=== PATIENT | female | born 1960 | race Caucasian/White ===

== ENCOUNTER 2023-03-06 12:54 | Observation (INO) ==
[2023-03-06] MEDS ORDERED: ONDANSETRON INJ 2 MG/ML 2 ML VIAL IV STA (13:30)
[2023-03-06] MEDS ORDERED: MoRPHine SULFATE 4 MG/ML 1 ML CARP\\VIAL IV STA (13:30)
--- NOTE | 2023-03-06 13:40 | Emergency Department Note ---
Impression & Plan Trimalleolar fracture, Fracture dislocation of ankle joint, Fall ED Provider Note CHIEF COMPLAINT: Left ankle pain HISTORY OF PRESENT ILLNESS: This 62 year old female patient presents to the emergency department via ambulance approximately 1 hour after sustaining an injury to the left ankle and foot when she tripped over a root while walking outside. The patient reports deformity and complains of pain diffusely throughout the ankle. The patient denies pain of the foot. There is some pain in the area just below the knee but states "I have bad knees anyway". The patient rates the pain as sharp and 8/10. The patient is not able to bear weight on the foot. She had to crawl to the house to get help and call 911. The patient is able to move their toes. No numbness or weakness of the foot, no laceration. The patient has not had a previous fracture to this ankle. The patient has taken no medication for the pain. The patient denies any other injury. REVIEW OF SYSTEMS: A 6 system review of systems was completed with positives and pertinent negatives listed in the HPI. ALLERGIES: lidocaine, NSAIDs PHYSICAL EXAM: Vital Signs: Reviewed Nurse's notes, vital signs stable. GENERAL: This is a 62 year old female, no acute distress, but appears in pain, well-developed, well-nourished. MENTAL STATUS: Alert, oriented to person place and time, and cooperative. MUSCULOSKELETAL: The left ankle is deformed. There is tenting over the medial malleolus, but no break in the skin. There is no specific fifth metatarsal tenderness. There is no tenderness over the rest of the foot. There is no calf or tibia/fibular tenderness, however the patient does report some inferior knee discomfort, but uncertain whether that may be acute or chronic. The foot and toes are warm and well-perfused. Dorsalis pedis pulse 2+. Sensation to pain and light touch is intact. Capillary refill less than 2 seconds. EMERGENCY DEPARTMENT COURSE: I examined the patient. IV access obtained. Patient was medicated with IV morphine and Zofran. X-rays of the left foot, ankle, tib/fib were reviewed by myself and read by radiology and reveal trimalleolar fracture with tibiotalar subluxation. I discussed the case with my attending physician, Dr. Wilkinson. He did see and evaluate the patient with me. Verbal consent was obtained by me from the patient to perform closed reduction of the fracture/dislocation of the left ankle. The patient was given 100 mcg IV fentanyl. The fracture/dislocation was reduced by me. Please see procedure note. An Ortho-Glass posterior leg with stirrup splint was applied to the ankle by nursing staff under my direct supervision and the position was satisfactory. Neurovascular status was rechecked and intact. Postreduction x-rays were performed and reviewed by myself and radiologist as noted. I discussed the case with Dr. Anand, orthopedic surgeon on-call. He did review the films. He offered for the patient to be admitted with surgery completed tomorrow versus discharge to home and outpatient follow-up next week. I presented these options to the patient and she feels more comfortable with an admission. The patient does note that she has 12 steps to get up to her area of the home that she lives in. She is nervous that her pain will be uncontrolled and that she may further injure the ankle I updated Dr. Anand that the patient would prefer to stay and be admitted. He did agree to see her for admission. Please see Dr. Anand's dictation regarding ongoing management care of this patient. I did offer repeat doses of pain medication and the patient declined, noting that since the reduction and splint application, her pain is much more controlled at this time. PROCEDURE NOTE: Verbal consent obtained to perform the procedure. After administration of 100mcg IV Fentanyl, the foot was grasped by the toes and a small amount of traction was pulled at the heel. The ankle fracture/dislocation was felt to reduce, though did remain somewhat unstable. The left lower extremity was splinted in a posterior leg with stirrup orthoglass splint by nursing staff while I maintained the reduction and splint was molded to the ankle. The patient tolerated the procedure very well. DIFFERENTIAL DIAGNOSIS: Fracture, subluxation, dislocation, contusion, ligamentous injury, neurovascular, compartment syndrome, as well as other pathologies. I attest that I have personally reviewed the patient's current medication list. Blood Pressure Screening: Patient was found to have a slightly elevated blood pressure due to circumstances. I do not believe that the patient requires hypertension monitoring. The chart was completed utilizing [employer] voice recognition software. Grammatical errors, random word insertions, pronoun errors, and incomplete sentences are an occasional consequence of this system due to software limitatio ns, ambient noise, and hardware issues. Any formal questions or concerns about the content, text, or information contained within the body of this dictation should be directly addressed to the provider for clarification. Past Med/Surg History Medical History Asthma excercise induced - has not used inhaler in years GERD (gastroesophageal reflux disease) HTN (hypertension) Hx-TIA (transient ischemic attack) states possible TIA-- 09/2022 @ [facility] - fatigue, difficulty speaking, was under high stress, elevated bp; does not follow w/ neuro- follows w/ PCP, started on BP meds; no issues since Hypothyroid Medical marijuana use Seasonal allergies Sleep apnea states borderline- no device at this time Surgical History H/O: hysterectomy Hx of colonoscopy Hx of dilation and curettage Hx of sinus surgery Hx of surgical procedure uterine artery embolization Hx of tonsillectomy Hx of wisdom tooth extraction Family History Other No family history of adverse response to anesthesia Social History Smoking Status: Unknown if ever smoked Second Hand Exposure: No; Do You Dip or Chew Tobacco: No; Hx Alcohol Use: No Hx Substance Use: Yes (medical marijuana use daily -advised) Preferred Language: Kazakh Communication Ability: Effective Director Of Acquisitions Required: No Beliefs That Will Affect Care: None Current Living Situation: Spouse Feels Safe at Home: Yes Assistive Devices: Glasses Allergies Allergies Allergy/AdvReac Type Severity Reaction Status Date / Time lidocaine Allergy Unknown Hives Verified 02/27/23 13:32 ibuprofen [From Advil] AdvReac Unknown Difficulty Verified 02/27/23 13:32 Breathing naproxen [From Aleve] AdvReac Unknown Difficulty Verified 02/27/23 13:32 Breathing Home Meds Home Medications Medication Instructions Recorded Confirmed aspirin 81 mg tablet,delayed 81 mg PO QAM 09/12/22 02/27/23 release azelastine 137 mcg (0.1 %) nasal 1 spray intranasal HS 09/12/22 02/27/23 spray aerosol estradiol 0.01% (0.1 mg/gram) 1 applic vaginal .EVERY OTHER NIGHT 09/12/22 02/27/23 vaginal cream famotidine 20 mg tablet 20 mg PO AMHS PRN Acid Reflux 09/12/22 02/27/23 levothyroxine 100 mcg tablet 100 mcg PO DAILYBB 09/12/22 02/27/23 pediatric multivitamin 1 tab PO DAILY 09/12/22 02/27/23 Medical Marijuana 1 dose PO HS PRN Pain 02/27/23 02/27/23 albuterol sulfate 90 mcg/actuation 1 inh inhalation QID PRN Shortness 02/27/23 02/27/23 aerosol inhaler Of Breath Or Wheezing losartan 25 mg tablet 25 mg PO QAM 02/27/23 02/27/23 Results & Data (ED) Vital Signs Vital Signs - 24 hr 03/06/23 12:59 03/06/23 16:25 03/06/23 17:43 Temperature 36.7 C Temperature Source Oral Pulse Rate 63 Pulse Rate [Right Finger] 52 L 56 L Pulse Rhythm [Right Finger] Regular Respiratory Rate 16 18 16 Respiratory Effort / Characteristics Non-Labored Spontaneous Non-Labored Respiratory Depth Normal Normal Normal Blood Pressure 175/76 H Blood Pressure [Right Arm] 154/76 H 151/67 H Blood Pressure Mean 109 Blood Pressure Mean [Right Arm] 102 95 Blood Pressure Position [Right Arm] Sitting Pulse Oximetry 98 98 97 Oxygen Delivery Method Room Air Room Air Room Air Sepsis Recent Fever Within 48 Hours No Sepsis New/Unexplained Change in Mental Status N/A Sepsis Action Taken by Nursing No Action Required Administered Medications Discontinued Medications Fentanyl Citrate (Fentanyl Citrate Pf 100 Mcg/2 Ml Vial) 100 mcg IV NOW STA Stop: 03/06/23 14:20 Last Admin: 03/06/23 14:34 Dose: 100 mcg Documented By: SUSU Sodium Chloride (Nss 1000ml) 1,000 mls @ 999 mls/hr IV .Q1H1M ONE Stop: 03/06/23 15:19 Last Infusion: 03/06/23 15:27 Dose: 0 mls/hr Documented By: Admin: 03/06/23 14:25 Dose: 999 mls/hr Documented By: SUSU Morphine Sulfate (Morphine Sulfate 4 Mg/Ml 1 Ml Carp\\Vial) 4 mg IV NOW STA Stop: 03/06/23 13:31 Last Admin: 03/06/23 13:35 Dose: 4 mg Documented By: JKB Ondansetron HCl (Ondansetron Inj 2 Mg/Ml 2 Ml Vial) 4 mg IV NOW STA Stop: 03/06/23 13:31 Last Admin: 03/06/23 13:35 Dose: 4 mg Documented By: SUSU Imaging Data Radiologist's Impression: Ankle X-Ray 03/06/23 13:30 XR tibia fibula LT 2V, XR foot LT 2V, XR ankle LT 2V HISTORY: 62 years-old Female pain, ankle deformity, tripped over root acute pain of the left lower extremity status post trauma COMPARISON: None TECHNIQUE: 2 views of left tibia and fibula with 2 views of the left ankle and 2 views of the left foot FINDINGS: TIBIA/FIBULA: Suboptimal evaluation of the knee secondary to positioning.There is an acute trimalleolar ankle fracture as below. The proximal tibia and fibula appear intact. ANKLE: Acute trimalleolar ankle fracture. Distal fibular metadiaphyseal fracture is comminuted with 1.6 cm lateral displacement and apex medial angulation of approximately 27 degrees. Tibiotalar subluxation with pathologic widening of the distal tibiofibular syndesmosis measuring 2.5 cm. Acute medial malleolar fracture with 1.8 cm displacement. Acute posterior malleolar fracture without significant displacement. The calcaneus. Moderate soft tissue swelling. FOOT: No acute fracture or dislocation identified. Spurring of the calcaneus. Type II accessory navicular. Indeterminate radiodensity projects medial to the fifth metatarsal. IMPRESSION: 1. Acute trimalleolar ankle fracture with comminution, displacement and angulation as above. 2. Tibiotalar subluxation. 3. Indeterminate radiodensity adjacent to the fifth metatarsal, likely artifactual. Fracture fragment considered less likely. ACT 112: Negative or not required by law. The above report was generated using voice recognition software. It may contain grammatical, syntax or spelling errors. Electronically signed by: Yefri Rascon M.D. 03/06/2023 2:21 PM Foot X-Ray 03/06/23 13:30 XR tibia fibula LT 2V, XR foot LT 2V, XR ankle LT 2V HISTORY: 62 years-old Female pain, ankle deformity, tripped over root acute pain of the left lower extremity status post trauma COMPARISON: None TECHNIQUE: 2 views of left tibia and fibula with 2 views of the left ankle and 2 views of the left foot FINDINGS: TIBIA/FIBULA: Suboptimal evaluation of the knee secondary to positioning.There is an acute trimalleolar ankle fracture as below. The proximal tibia and fibula appear intact. ANKLE: Acute trimalleolar ankle fracture. Distal fibular metadiaphyseal fracture is comminuted with 1.6 cm lateral displacement and apex medial angulation of approximately 27 degrees. Tibiotalar subluxation with pathologic widening of the distal tibiofibular syndesmosis measuring 2.5 cm. Acute medial malleolar fracture with 1.8 cm displacement. Acute posterior malleolar fracture without significant displacement. The calcaneus. Moderate soft tissue swelling. FOOT: No acute fracture or dislocation identified. Spurring of the calcaneus. Type II accessory navicular. Indeterminate radiodensity projects medial to the fifth metatarsal. IMPRESSION: 1. Acute trimalleolar ankle fracture with comminution, displacement and angulation as above. 2. Tibiotalar subluxation. 3. Indeterminate radiodensity adjacent to the fifth metatarsal, likely artifactual. Fracture fragment considered less likely. ACT 112: Negative or not required by law. The above report was generated using voice recognition software. It may contain grammatical, syntax or spelling errors. Electronically signed by: Yefri Rascon M.D. 03/06/2023 2:21 PM Tibia/Fibula X-Ray 03/06/23 13:30 XR tibia fibula LT 2V, XR foot LT 2V, XR ankle LT 2V HISTORY: 62 years-old Female pain, ankle deformity, tripped over root acute pain of the left lower extremity status post trauma COMPARISON: None TECHNIQUE: 2 views of left tibia and fibula with 2 views of the left ankle and 2 views of the left foot FINDINGS: TIBIA/FIBULA: Suboptimal evaluation of the knee secondary to positioning.There is an acute trimalleolar ankle fracture as below. The proximal tibia and fibula appear intact. ANKLE: Acute trimalleolar ankle fracture. Distal fibular metadiaphyseal fracture is comminuted with 1.6 cm lateral displacement and apex medial angulation of approximately 27 degrees. Tibiotalar subluxation with pathologic widening of the distal tibiofibular syndesmosis measuring 2.5 cm. Acute medial malleolar fracture with 1.8 cm displacement. Acute posterior malleolar fracture without significant displacement. The calcaneus. Moderate soft tissue swelling. FOOT: No acute fracture or dislocation identified. Spurring of the calcaneus. Type II accessory navicular. Indeterminate radiodensity projects medial to the fifth metatarsal. IMPRESSION: 1. Acute trimalleolar ankle fracture with comminution, displacement and angulation as above. 2. Tibiotalar subluxation. 3. Indeterminate radiodensity adjacent to the fifth metatarsal, likely artifactual. Fracture fragment considered less likely. ACT 112: Negative or not required by law. The above report was generated using voice recognition software. It may contain grammatical, syntax or spelling errors. Electronically signed by: Yefri Rascon M.D. 03/06/2023 2:21 PM Ankle X-Ray 03/06/23 14:44 XR ankle LT min 3V routine HISTORY: 62 years-old Female post-reduction acute left ankle fracture COMPARISON: Radiographs of same day TECHNIQUE: 3 views of the left ankle FINDINGS: Improved alignment of the acute trimalleolar fracture with mild persistent displacement of the medial, lateral and posterior malleolar fractures. There is also improved alignment of the tibiotalar joint. There is mild persistent widening involving the medial tibiotalar articulation along with mild widening of the distal tibiofibular syndesmosis. Moderate soft tissue swelling. No definite intra-articular fracture fragments identified. IMPRESSION: Improved alignment of the acute trimalleolar ankle fracture with improved tibiotalar alignment. ACT 112: Negative or not required by law. The above report was generated using voice recognition software. It may contain grammatical, syntax or spelling errors. Electronically signed by: Yefri Rascon M.D. 03/06/2023 3:43 PM Discharge Plan Visit Data Chief Complaint: Ankle Pain Stated Complaint: FALL, LEFT ANKLE INJURY ED Provider: Kee Wilkinson ED Midlevel Provider: Karlee Julian Discharge Problem: Trimalleolar fracture, Fracture dislocation of ankle joint, Fall Patient Disposition: Admitted As Inpatient Discharge Instructions Interventions: ED Discharge Assessment Last Done: 03/06/23 20:02
[2023-03-06] MEDS ORDERED: SODIUM CHLORIDE 0.9% 1000ML 1,000 ML IV ONE (14:19)
[2023-03-06] MEDS ORDERED: fentaNYL citrate PF 100 MCG/2 ML VIAL IV STA (14:19)
--- NOTE | 2023-03-06 14:23 | XRay Report ---
XR tibia fibula LT 2V, XR foot LT 2V, XR ankle LT 2V HISTORY: 62 years-old Female pain, ankle deformity, tripped over root acute pain of the left lower e xtremity status post trauma COMPARISON: None TECHNIQUE: 2 views of left tibia and fibula with 2 views of the left ankle and 2 views of the left fo ot FINDINGS: TIBIA/FIBULA: Suboptimal evaluation of the knee secondary to positioning.There is an acute trimalleolar ankle fract ure as below. The proximal tibia and fibula appear intact. ANKLE: Acute trimalleolar ankle fracture. Distal fibular metadiaphyseal fracture is comminuted with 1.6 cm lateral displacement and apex medial angulation of approximately 27 degrees. Tibiotalar subluxation w ith pathologic widening of the distal tibiofibular syndesmosis measuring 2.5 cm. Acute medial malleol ar fracture with 1.8 cm displacement. Acute posterior malleolar fracture without significant displace ment. The calcaneus. Moderate soft tissue swelling. FOOT: No acute fracture or dislocation identified. Spurring of the calcaneus. Type II accessory navicular. Indeterminate radiodensity projects medial to the fifth metatarsal. IMPRESSION: 1. Acute trimalleolar ankle fracture with comminution, displacement and angulation as above. 2. Tibiotalar subluxation. 3. Indeterminate radiodensity adjacent to the fifth metatarsal, likely artifactual. Fracture fragment considered less likely. ACT 112: Negative or not required by law. The above report was generated using voice recognition software. It may contain grammatical, syntax o r spelling errors. Electronically signed by: Yefri Rascon M.D. 03/06/2023 2:21 PM
--- NOTE | 2023-03-06 15:43 | Emergency Department Note ---
ED Visit Note Patient was seen by the JACINTO, I have also evaluated the patient at bedside for a left ankle injury Left ankle on exam patient is neurovascularly intact there is obvious deformity and strays were reviewed by me has a trimalleolar fracture Patient was verbally consented and understood that we would be doing a closed fracture dislocation reduction Patient tolerated the procedure well, see the JACINTO's note regarding the procedure, patient was splinted, will be referred to orthopedics .
--- NOTE | 2023-03-06 15:45 | XRay Report ---
XR ankle LT min 3V routine HISTORY: 62 years-old Female post-reduction acute left ankle fracture COMPARISON: Radiographs of same day TECHNIQUE: 3 views of the left ankle FINDINGS: Improved alignment of the acute trimalleolar fracture with mild persistent displacement of the medial , lateral and posterior malleolar fractures. There is also improved alignment of the tibiotalar joint . There is mild persistent widening involving the medial tibiotalar articulation along with mild wide linwood of the distal tibiofibular syndesmosis. Moderate soft tissue swelling. No definite intra-articul ar fracture fragments identified. IMPRESSION: Improved alignment of the acute trimalleolar ankle fracture with improved tibiotalar alig nment. ACT 112: Negative or not required by law. The above report was generated using voice recognition software. It may contain grammatical, syntax o r spelling errors. Electronically signed by: Yefri Rascon M.D. 03/06/2023 3:43 PM
--- NOTE | 2023-03-06 18:27 | Anesthesiology Consultation ---
Date of Service March 06, 2023 Assessment & Plan Chart Review Chart Review: Acceptable Risk for Surgery and Patient NOT seen in Pre Admission Testing Consults Requested none ASA ASA3 Proposed Anesthesia Anesthesia Type: General Regional Regional Laterality: Left Site: Popliteal and Adductor Canal History Height/Weight Height: 5 ft 6 in Weight: 114.3 kg Allergies Allergy/AdvReac Type Severity Reaction Status Date / Time lidocaine Allergy Unknown Hives Verified 02/27/23 13:32 ibuprofen [From Advil] AdvReac Unknown Difficulty Verified 02/27/23 13:32 Breathing naproxen [From Aleve] AdvReac Unknown Difficulty Verified 02/27/23 13:32 Breathing Medications Home Medications Medication Instructions Recorded Confirmed Last Taken aspirin 81 mg tablet,delayed 81 mg PO QAM 09/12/22 02/27/23 Unknown release azelastine 137 mcg (0.1 %) nasal 1 spray intranasal HS 09/12/22 02/27/23 Unknown spray aerosol estradiol 0.01% (0.1 mg/gram) 1 applic vaginal .EVERY OTHER NIGHT 09/12/22 02/27/23 Unknown vaginal cream famotidine 20 mg tablet 20 mg PO AMHS PRN Acid Reflux 09/12/22 02/27/23 Unknown levothyroxine 100 mcg tablet 100 mcg PO DAILYBB 09/12/22 02/27/23 Unknown pediatric multivitamin 1 tab PO DAILY 09/12/22 02/27/23 Unknown Medical Marijuana 1 dose PO HS PRN Pain 02/27/23 02/27/23 Unknown albuterol sulfate 90 mcg/actuation 1 inh inhalation QID PRN Shortness 02/27/23 02/27/23 Unknown aerosol inhaler Of Breath Or Wheezing losartan 25 mg tablet 25 mg PO QAM 02/27/23 02/27/23 Unknown Past Medical History Medical History Asthma excercise induced - has not used inhaler in years GERD (gastroesophageal reflux disease) HTN (hypertension) Hx-TIA (transient ischemic attack) states possible TIA-- 09/2022 @ [facility] - fatigue, difficulty speaking, was under high stress, elevated bp; does not follow w/ neuro- follows w/ PCP, started on BP meds; no issues since Hypothyroid Medical marijuana use Seasonal allergies Sleep apnea states borderline- no device at this time morbid obesity ASCVD HLD Exercise / Class Metabolic Activity II 4-5 Yardwork/Stairs/Walk up hill Past Family History Family History Other No family history of adverse response to anesthesia Past Surgical History Surgical History H/O: hysterectomy Hx of colonoscopy Hx of dilation and curettage Hx of sinus surgery Hx of surgical procedure uterine artery embolization Hx of tonsillectomy Hx of wisdom tooth extraction Past Anesthesia History No Hx of Anesthesia Complications and No Family Hx of Anesthesia Complications History of PONV No Hx of PONV and No Hx of Motion Sickness Social History Smoking Status: Unknown if ever smoked Do You Dip or Chew Tobacco: No Hx Alcohol Use: No Hx Substance Use: Yes (medical marijuana use daily -advised) substance use type: marijuana Physical Exam Vital Signs Last Vital Signs Temp 36.7 C 03/06/23 12:59 Pulse 56 L 03/06/23 17:43 Resp 16 03/06/23 17:43 BP 151/67 H 03/06/23 17:43 Pulse Ox 97 03/06/23 17:43 O2 Del Method Room Air 03/06/23 17:43 Testing Electrocardiogram Date: 09/12/22 Findings: + NSR @ (@ 67;LAE) Other Testing Neck CTA (09/12/2022)Neg.
--- NOTE | 2023-03-06 20:59 | History & Physical Report ---
Date of Service March 06, 2023 Assessment & Plan (1) Trimalleolar fracture: (2) Fracture dislocation of ankle joint: Plan 62-year-old female with trimalleolar ankle fracture dislocation with adequate closed reduction in the emergency room. Given the degree of displacement and instability in the pattern, my recommendation was to proceed with an open reduction and internal fixation. There is an advantage to treat this acutely tomorrow versus waiting for swelling to worsen. Surgical management would likely give her more stability to be discharged to outpatient care versus returning for surgery. We discussed the diagnosis, prognosis, and recommended treatment for this type of ankle fracture. I recommended open reduction and internal fixation. We discussed the risks of surgery include, but are not limited to, infection, neurovascular injury, arthrofibrosis of the ankle, need for repeat or revision surgery, nonunion, malunion, symptomatic hardware, failure of components, pain syndromes, blood clots and complications related anesthesia. She asked appropriate questions, demonstrated a good understanding, and wants to proceed with surgery. We did discuss alternatives to surgery which would be casting. I think there is a higher risk of nonunion and malunion and ankle arthritis with a nonsurgical treatment. She will be admitted tonight for strict elevation and pain management. She is n.p.o. for surgery tomorrow. History of Present Illness Chief Complaint: Left ankle fracture dislocation Primary Care Provider: An Tan, 62-year-old female brought to the emergency room today after a trip and fall while she was out walking. She reported that she tripped over a tree root and twisted her ankle. She had a cannot put weight on it and it was displaced. She crawled 50 yards to a phone to call for help. She was brought by ambulance. She reports no previous injuries to that ankle. Denies any numbness or tingling or sensation losses. She was managed appropriate by the ER with an acute reduction and splinting with success. She says she is would have a lot of difficulty getting about with her ankle in splint. She preferred acute management, if appropriate. Allergies Allergy/AdvReac Type Severity Reaction Status Date / Time lidocaine Allergy Unknown Hives Verified 02/27/23 13:32 ibuprofen [From Advil] AdvReac Unknown Difficulty Verified 02/27/23 13:32 Breathing naproxen [From Aleve] AdvReac Unknown Difficulty Verified 02/27/23 13:32 Breathing Home Medications Medication Instructions Recorded Confirmed Type aspirin 81 mg tablet,delayed 81 mg PO QAM 09/12/22 02/27/23 History release azelastine 137 mcg (0.1 %) nasal 1 spray intranasal HS 09/12/22 02/27/23 History spray aerosol estradiol 0.01% (0.1 mg/gram) 1 applic vaginal .EVERY OTHER NIGHT 09/12/22 02/27/23 History vaginal cream famotidine 20 mg tablet 20 mg PO AMHS PRN Acid Reflux 09/12/22 02/27/23 History levothyroxine 100 mcg tablet 100 mcg PO DAILYBB 09/12/22 02/27/23 History pediatric multivitamin 1 tab PO DAILY 09/12/22 02/27/23 History Medical Marijuana 1 dose PO HS PRN Pain 02/27/23 02/27/23 History albuterol sulfate 90 mcg/actuation 1 inh inhalation QID PRN Shortness 02/27/23 02/27/23 History aerosol inhaler Of Breath Or Wheezing losartan 25 mg tablet 25 mg PO QAM 02/27/23 02/27/23 History Past Med/Surg History Medical History Asthma excercise induced - has not used inhaler in years GERD (gastroesophageal reflux disease) HTN (hypertension) Hx-TIA (transient ischemic attack) states possible TIA-- 09/2022 @ [facility] - fatigue, difficulty speaking, was under high stress, elevated bp; does not follow w/ neuro- follows w/ PCP, started on BP meds; no issues since Hypothyroid Medical marijuana use Seasonal allergies Sleep apnea states borderline- no device at this time Surgical History H/O: hysterectomy Hx of colonoscopy Hx of dilation and curettage Hx of sinus surgery Hx of surgical procedure uterine artery embolization Hx of tonsillectomy Hx of wisdom tooth extraction Family History Other No family history of adverse response to anesthesia Social History Smoking Status: Unknown if ever smoked Second Hand Exposure: No; Do You Dip or Chew Tobacco: No; Hx Alcohol Use: No Hx Substance Use: Yes (medical marijuana use daily -advised) Preferred Language: Egyptian Communication Ability: Effective Hog Tender Required: No Beliefs That Will Affect Care: None Current Living Situation: Spouse Feels Safe at Home: Yes Assistive Devices: Glasses Review of Systems All systems reviewed & are unremarkable except as noted in HPI & below. Physical Exam LLE: The limb is appropriately elevated with a L and U type ankle splint in place. Her toes were visible and were neurovascular intact with active motion. Her knee was without significant deformity swelling or edema. Constitutional WD/WN, vitals as above Respiratory normal respiratory effort; no respiratory distress Cardiovascular Extremities: normal capillary refill; no edema Chest (Breasts) Chest: normal inspection of chest Skin no rashes, warm and dry Psychiatric A+Ox3, euthymic affect Results & Data Results & Data Laboratory Results . Diagnostic Findings Radiographs reviewed. Her trauma x-rays show a fracture dislocation involving the medial lateral and posterior malleolus. The postreduction film shows adequate reduction. This is an unstable ankle fracture pattern. PG Care Time/CCT Total # of Minutes Spent Total Time Spent with Patient: Total time spent is greater than 50% in coordination of care (as documented) at patient's floor/unit and/or counseling patient: Coding Level of Care Code 33247 INT INP/OBS CARE 3/75MIN (57 - DECISION FOR SURGERY) Diagnoses Trimalleolar fracture S82.853A Fracture dislocation of ankle joint S82.899A
[2023-03-06] MEDS ORDERED: HYDROmorphone INJ 0.5 MG/0.5 ML SYR IV PRN ×2 (21:13)
[2023-03-06] MEDS ORDERED: ONDANSETRON INJ 2 MG/ML 2 ML VIAL IV PRN (21:13)
[2023-03-06] MEDS ORDERED: ERGOCALCIFEROL 50,000 UNITS 1250 MCG CAP PO ONE (21:13)
[2023-03-06] MEDS ORDERED: oxyCODONE HCL IR 5 MG TAB (IMMEDIATE RELEASE) PO PRN ×2 (21:13)
[2023-03-06] MEDS ORDERED: diphenhydrAMINE Capsule 25 MG CAP PO PRN (21:13)
[2023-03-06] MEDS ORDERED: FAMOTIDINE 20 MG TAB PO PRN (21:13)
[2023-03-06] MEDS ORDERED: ALUMINUM/MAGNESIUM SUSP 30 ML UDC PO PRN (21:13)
[2023-03-06] MEDS ORDERED: ALBUTEROL HFA 8 GM INHALER INH PRN (21:13)
[2023-03-06] MEDS ORDERED: diphenhydrAMINE 50 MG/ML VIAL IV PRN (21:13)
[2023-03-06] MEDS: ACETAMINOPHEN 500 MG TAB PO SCH (21:44)
[2023-03-06 22:00] LABS: Basophils % (auto) 0.9 %; Eosinophils # (auto) 0.09 K/uL (0-0.50); Eosinophils % (auto) 0.8 %; Hematocrit (blood only) 38.9 % (37.0-47.0); Immature Granulocytes # (auto) 0.03 K/uL (0.01-0.20); Immature Granulocytes % (auto) 0.3 %; Lymphocytes # (auto) 1.98 K/uL (1.2-3.4); Lymphocytes % (auto) 18.1 %; Mean Corpuscular Hemoglobin 28.8 pg (25.0-34.0); Mean Corpuscular Hgb Conc 33.4 g/dL (32.0-36.0); Mean Corpuscular Volume 86.3 fL (80.0-100.0); Mean Platelet Volume 10.9 fL (9.4-12.4); Monocytes # (auto) 1.01 K/uL (0.11-0.59); Monocytes % (auto) 9.2 %; Neutrophils # (auto) 7.73 K/uL (1.40-6.50); Neutrophils % (auto) 70.7 %; Platelet Count 290 K/uL (130-400); RDW Coefficient of Variation 13.5 % (11.5-14.5); RDW Standard Deviation 42.3 fL (36.4-46.3); Red Blood Count 4.51 M/uL (4.20-5.40); White Blood Count 10.94 K/ul (4.8-10.8)
[2023-03-06 22:00] LABS: Calcium 9.7 mg/dl (8.6-10.3); Est GFR (Non-African American) 85.4 ml/min; Potassium 3.9 mmol/L (3.5-5.1)
[2023-03-06 22:00] LABS: INR 0.9 (0.9-1.1); Partial Thromboplastin Time 28.4 Seconds (21.0-31.0); Prothrombin Time 10.3 Seconds (9.0-12.0)
[2023-03-07] MEDS: LEVOTHYROXINE SODIUM 100 MCG TABLET PO SCH (05:37)
[2023-03-07] MEDS: ACETAMINOPHEN 500 MG TAB PO SCH ×3 (05:37→21:42)
[2023-03-07] MEDS ORDERED: ONDANSETRON INJ 2 MG/ML 2 ML VIAL ONE ×3 (07:09→11:21)
[2023-03-07] MEDS ORDERED: fentaNYL citrate PF 100 MCG/2 ML VIAL ONE ×3 (07:09→10:29)
[2023-03-07] MEDS ORDERED: DEXAMETHASONE SOD INJ 4 MG/ML VIAL ONE ×2 (07:09→07:46)
[2023-03-07] MEDS ORDERED: MIDAZOLAM HCL 1 MG/ML 2ML VIAL ONE (07:09)
[2023-03-07] MEDS ORDERED: SUCCINYLCHOLINE CHLORIDE 20 MG/ML 10 ML VIAL IV ONE (07:09)
[2023-03-07] MEDS ORDERED: PROPOFOL IV EMULSION 10 MG/ML 20 ML VIAL IV ONE (07:09)
--- NOTE | 2023-03-07 07:13 | Electrocardiogram Report ---
Test Reason : Blood Pressure : / mmHG Vent. Rate : 050 BPM Atrial Rate : 050 BPM P-R Int : 154 ms QRS Dur : 098 ms QT Int : 426 ms P-R-T Axes : 057 051 047 degrees QTc Int : 388 ms Sinus bradycardia Abnormal ECG When compared with ECG of 12-SEP-2022 17:37, No significant change was found Confirmed by Jon Perez ([id number]) on 03/07/2023 7:13:39 AM Referred By: REFERRED SELF Confirmed By:Nicola Perez
[2023-03-07] MEDS ORDERED: FAMOTIDINE/PF 20 MG/2 ML VIAL IV ONE (07:36)
[2023-03-07] MEDS ORDERED: ROPIVACAINE 0.5% 5 MG/ML 30 ML VIAL ONE (07:44)
[2023-03-07] MEDS ORDERED: EPINEPHrine INJ 1 MG/ML AMP ONE (07:45)
--- NOTE | 2023-03-07 07:45 | History & Physical Bridge Note ---
Date of Service March 07, 2023 History & Physical Bridge Note I have examined the patient, reviewed the History & Physical and in the interval since the performance of the History & Physical I have noted the following changes of clinical significance: no changes noted Consent reviewed and confirmed and signed this morning.
[2023-03-07] MEDS ORDERED: ROCURONIUM BROMIDE 10 MG/ML 5 ML VIAL IV ONE (08:26)
[2023-03-07] MEDS ORDERED: ceFAZolin 330 MG/ML 1 GM VIAL ONE (08:46)
[2023-03-07] MEDS ORDERED: ceFAZolin 2000MG 2,000 MG/15 ML SYR IV ONE (09:09)
[2023-03-07] MEDS ORDERED: GLYCOPYRROLATE 0.2 MG/ML VIAL ONE (09:52)
[2023-03-07] MEDS ORDERED: NEOSTIGMINE METHYLSULFATE 1 MG/ML 10ML VIAL ONE (09:52)
[2023-03-07] MEDS ORDERED: fentaNYL citrate PF 100 MCG/2 ML VIAL IV PRN (10:29)
[2023-03-07] MEDS ORDERED: ONDANSETRON INJ 2 MG/ML 2 ML VIAL IV PRN (10:29)
[2023-03-07] MEDS ORDERED: LABETALOL HCL IV 5 MG/ML 20ML IV PRN (10:29)
[2023-03-07] MEDS ORDERED: PROMETHAZINE HCL 12.5 MG in SODIUM CHLORIDE 0.9% 50 ML IV PRN (10:29)
[2023-03-07] MEDS ORDERED: FLUMAZENIL 0.1 MG/1 ML 10 ML VIAL IV PRN (10:29)
[2023-03-07] MEDS ORDERED: HYDROmorphone INJ 1 MG/ML SYRINGE IV PRN (10:29)
[2023-03-07] MEDS ORDERED: NALOXONE HCL 0.4 MG/1 ML VIAL/CARP IV PRN (10:29)
[2023-03-07] MEDS ORDERED: ATROPINE SULFATE 0.1 MG/ML 10ML SYR IV PRN (10:29)
[2023-03-07] MEDS ORDERED: ePHEDrine sulfate 50 MG/ML AMP IV PRN (10:29)
--- NOTE | 2023-03-07 11:01 | Fluoroscopy Report ---
INTRAOPERATIVE RADIOGRAPHS CLINICAL HISTORY: Open reduction and internal fixation of the left ankle. Fluoro time: 60 seconds Ka,r: 2.51 mGy FINDINGS: 10 spot fluoroscopic views of the left ankle are correlated with radiographs dated 03/06/2023 . 2 cortical lag screws have been placed transfixing a medial malleolar fracture. There has been a bu ttress plate fixation of a distal fibular fracture. Near-anatomic alignment is restored at the ankle joint. The orthopedic hardware appears intact. Overlying soft tissue edema is noted. There is also a vertical oriented fracture through the posterior malleolus of the tibia. IMPRESSION: Intraoperative images from open reduction and internal fixation of left ankle fractures a s above. Electronically signed by: Joby Castillo M.D. 03/07/2023 10:59 AM
--- NOTE | 2023-03-07 11:04 | Operative Report ---
PG Post Operative Report Pre & Post Diagnosis Operation Date: 03/07/23 07:30 Pre-Op Diagnosis: Trimalleolar fracture, left; Fracture dislocation of ankle joint, left Post-Op Diagnosis: Trimalleolar fracture, left; Fracture dislocation of ankle joint, left I identified the patient and participated in the time-out.: Yes Procedure Operation Date: 03/07/23 07:30 Actual Procedures p Left Trimalleolar Ankle Open Reduction and Internal Fixation(Left) - Reji Anand MD Surgeon Reji Anand MD Caul Puller Ab El PA-C Estimated Blood Loss 50 Findings See Below Minimally comminuted and obliquely oriented medial malleolus fracture stabilized with two 4.0 cannulated screws. Comminuted distal diaphyseal fibular fracture reduced directly with circumferential #1 Vicryl stitches and stabilized with a 9 hole 2.75/3.5 locking fibular plate as a bridge construct. All Synthes implants: 50 mm 4.0 cannulated screws x2, 9 hole shaft 2.7/3.5 fibular locking plate, 3.5 cortical screws 14 mm X2 and 16 mm, 3.5 locking screws 16 mm X2, 2.7 locking screws 10 mm X2 and 12 mm X3. Specimens none Anesthesia Type General Regional Complications none Disposition Accompanied Patient To Recovery: No Disposition: Recovery Room Indications 62-year-old female sustained a trip and fall resulting in displaced ankle fracture. She was closed reduced in the emergency room. Given the nature of the fracture and her difficulty ambulating, she was admitted to the hospital for preoperative valuation before surgery today. I discussed the diagnosis, prognosis, and treatment options. I did recommend surgical stabilization for this fracture pattern to restore ankle function. We discussed the alternatives, risk, benefits in detail, as outlined in the consultation note. Informed consent was documented today. Description of Procedure On the day of surgery, the patient was greeted in the preoperative holding area. The informed consent was reviewed and confirmed by myself and the patient. The patient identified the surgical site and was marked by me. The patient was then turned over to anesthesia. Anesthesia performed a regional anesthetic block with excellent effect. Patient was then taken to the operating place upon the OR table and anesthesia was induced. The airway was secured. A 3 blanket bump was placed under his ipsilateral hip. The bone foam was placed onto the operative extremity and fixed to the table. All bony prominences well- padded. A nonsterile tourniquet placed on the operative thigh. The extremity then prepped and draped in usual sterile fashion for ankle fracture surgery. Surgical timeout was called by the circulating nurse and verified all present. Antibiotics had been infused and equipment was available and functional. Adequate fluoroscopic views were available. Surgery was initiated by exsanguinating the extremity with the Esmarch bandage and inflating the tourniquet to 250 mmHg. Total tourniquet time was less than 90 minutes. The medial malleolus fracture was approached first. A linear incision just anterior to the saphenous vein was made. Soft tissue dissection was carried out using dissection scissors. The fracture was gapped open from proximal to distal to thoroughly irrigate the fracture debris. The joint was inspected. There were no obvious loose fragments. Soft tissue margins were developed sharply on all the cortical keys. A tugboat pilot hole was made approximately to place a xwsfc-vq-rilre clamp which was then used at the distal aspect of the fragment to reduce it under direct visualization. Fluoroscopy was used to ensure adequate joint reduction. 2 malleolus screws were chosen for the fixation. Provisional pins were placed and evaluated under fluoroscopy. The near cortex was drilled using the cannulated bit. Two 4.0 cannulated long threaded malleolar screws were placed a 50 mm length. The site was thoroughly irrigated. We then directed attention to the lateral malleolus. The fracture was localized using fluoroscopy and the joint line was marked on the skin. Longitudinal skin incision along the fibular shaft was made. Subc utaneous dissection was carried out using Bovie electrocautery for hemostasis. Subcutaneous dissection was conducted using Metzenbaum scissors with caution for the nearby superficial peroneal nerve. The nerve was identified in the anterior skin flap and mobilized. Fascia was incision was made posterior to the nerve with a large muscle sleeve to protect it. The fibula is easily palpable through the fascia and opened up through the retinacula to reveal the periosteum and hematoma. The hematoma was evacuated using sharp dissection and thorough irrigation. The main fracture site was exposed. There was severe comminution. Small cortical fragments were maintained. An anterior cortical baca was available for reduction using lobster forcep. The posterior extent of the fracture identified and stabilized with a broad-based fracture clamp. Fracture reduction clamps were then used to manipulate the fibula. Due to this large segment of comminution, I felt our length and rotation was achieved with our provisional reduction. I stabilized the reduction using circumferential wind-lass style #1 Vicryl stitches with compression. This allowed us to remove the fracture clamps for plate positioning. The reduction was studied on fluoroscopy and felt to be acceptable. Fluoroscopy was used to determine plate length, and followed by plate position. It was held provisionally proximal metaphyseal cortical screw to reduce the plate to bone. An additional cortical screw proximal to the fracture was used to lock her plate position. Clamps were removed from the plate and bone. The malleolus segment was stabilized using locking screws in all positions. The plate was forced down to bone to ensure adequate plate reduction. The proximal shaft screw was then placed. 2 cortical screws helped to reduce the plate to bone, and the most proximal to screw positions were 3.5 locking screws given her osteoporotic bone and comminution of the segment. The fracture reduction and plate position was then evaluated thoroughly on fluoroscopy in multiple views. A dorsiflexion external rotation force was then placed to evaluate the syndesmosis, which appears stable. We then thoroughly irrigated the surgical sites. We then began closure after thorough irrigation. Hemostasis was adequate. 0 Vicryl suture was used to approximate periosteum and muscle fascia around the plate to cover its entirety and protect the superficial peroneal nerve. Deep fascial tissue was approximated underneath the dermis to close down the wound using 0 Vicryl suture. 2-0 Vicryl and 3-0 Vicryl sutures in the dermis and the final skin closure with kimberli. The medial malleolar wound was closed in a similar fashion. Wound was dressed with sterile Xeroform, gauze, ABD and contained by web roll. The limb was placed in a posterior ankle splint that was adequately padded. Patient was turned over anesthesia, extubated in the operating without complication, and transported to the PACU in stable condition. Disposition: The patient will be nonweightbearing for 6 weeks and follow-up in 10 to 14 days for wound check and advancement into a controlled active motion boot. She will remain inpatient till evaluation by PT/OT and assessment for pain management. Ankle range of motion can begin once the wound is healed and the sutures removed at the 2-week postop. Routine postoperative pain management was prescribed. I recommended daily aspirin for DVT prophylaxis. Physician licensed investment sales assistant attestation: [email or web address] was present and scrubbed for the duration of the case. He was essential to prepping/draping, patient positioning, retraction, and assistance with wound closure. The skilled assistance of the PA was necessary for retraction, fracture reduction and assistance with drilling and placement of hardware. I attest to the content of the Intraoperative Record and any orders documented therein. Any exceptions are noted below. I attest to the content of the Intraoperative Record and any orders documented therein. Any exceptions are noted below.
--- NOTE | 2023-03-07 11:40 | Anesthesiology Progress Note ---
Date of Service March 07, 2023 Anesthesia Post Procedure Vital Signs Vital Signs: Temp Pulse Pulse Pulse Resp BP BP 03/07/23 11:30 36.5 C 87 18 155/79 H 03/07/23 11:20 84 20 153/85 H 03/07/23 11:10 77 20 146/77 H 03/07/23 11:00 76 18 159/66 H 03/07/23 10:52 36.2 C L 78 14 154/70 H 03/07/23 07:05 36.9 C 55 L 16 150/85 H 03/06/23 21:13 03/06/23 21:02 36.9 C 58 L 16 03/06/23 19:00 03/06/23 20:02 144/79 H 03/06/23 17:43 56 L 16 03/06/23 16:25 52 L 18 03/06/23 12:59 36.7 C 63 16 175/76 H BP Pulse Ox Pulse Ox O2 Del Method O2 Del Method O2 Flow Rate 03/07/23 11:30 93 Nasal Cannula 2 03/07/23 11:20 93 Oxymask 4 03/07/23 11:10 93 Oxymask 6 03/07/23 11:00 94 Oxymask 8 03/07/23 10:52 94 Oxymask 10 03/07/23 07:05 96 Room Air 03/06/23 21:13 98 Room Air 03/06/23 21:02 159/73 H 98 Room Air 03/06/23 19:00 144/79 H 03/06/23 20:02 97 Room Air 03/06/23 17:43 151/67 H 97 Room Air 03/06/23 16:25 154/76 H 98 Room Air 03/06/23 12:59 98 Room Air Pain Intensity Left Ankle: Pain Intensity: 5 Transfer of Care Handoff Completed per policy Notes Mental Status: alert / awake / arousable Patient Amnestic to Procedure: Yes Nausea / Vomiting: adequately controlled Pain: adequately controlled Airway Patency, RR, SpO2: stable & adequate BP & HR: stable & adequate Hydration State: stable & adequate Anesthetic Complications: no major complications apparent
[2023-03-07] MEDS ORDERED: COUGH DROP (SUGAR FREE) LOZ 24 LOZ/1 BOX BUCCAL PRN (14:19)
[2023-03-07] MEDS: ceFAZolin 2000MG 2,000 MG/15 ML SYR IV SCH (17:51)
[2023-03-08] MEDS: ceFAZolin 2000MG 2,000 MG/15 ML SYR IV SCH (02:16)
[2023-03-08] MEDS: ACETAMINOPHEN 500 MG TAB PO SCH ×2 (05:24→13:06)
[2023-03-08] MEDS: LEVOTHYROXINE SODIUM 100 MCG TABLET PO SCH (05:24)
--- NOTE | 2023-03-08 13:59 | Discharge Summary ---
Date of Service March 08, 2023 Admission HPI (Per Admitting) 62-year-old female brought to the emergency room today after a trip and fall while she was out walking. She reported that she tripped over a tree root and twisted her ankle. She had a cannot put weight on it and it was displaced. She crawled 50 yards to a phone to call for help. She was brought by ambulance. She reports no previous injuries to that ankle. Denies any numbness or tingling or sensation losses. She was managed appropriate by the ER with an acute reduction and splinting with success. She says she is would have a lot of difficulty getting about with her ankle in splint. She preferred acute management, if appropriate. Admission Exam (Per Admitting) LLE: The limb is appropriately elevated with a L and U type ankle splint in place. Her toes were visible and were neurovascular intact with active motion. Her knee was without significant deformity swelling or edema. Constitutional WD/WN, vitals as above Respiratory normal respiratory effort Psychiatric A+Ox3, euthymic affect Principal Diagnosis Same as "Discharge Diagnosis" noted below under Discharge Instructions. Discharge Exam Appears comfortable and with good insight. LLE: Splint is clean dry and intact. Positive motor to the toes. Sensation still diminished from block. Well-perfused digits. Constitutional WD/WN, vitals as above Respiratory normal respiratory effort Psychiatric A+Ox3, euthymic affect Discharge Data Consultations 03/06/23 16:20 ED Decision to Admit Stat Procedures Performed Operation Date: 03/07/23 07:30 Actual Procedures p Left Bimalleolar Ankle Open Reduction and Internal Fixation(Left) - Reji Anand MD Ordered Studies 03/07/23 FL ankle LT min 3V RTN Routine 03/07/23 07:31 US - OR guided needle placemen Stat Hospital Course (1) Trimalleolar fracture: (2) Fracture dislocation of ankle joint: Plan Admitted preoperatively for strict elevation. On 03/07/2023, she underwent open reduction internal fixation of the ankle fracture. This was uncomplicated. She remained in the hospital for pain management and physical therapy and Occupational Therapy evaluations. She was cleared for discharge to home and outpatient care. PG Care Time/CCT Total # of Minutes Spent Total Time Spent with Patient: Total time spent is greater than 50% in coordination of care (as documented) at patient's floor/unit and/or counseling patient: Discharge Plan Discharge Items Patient Disposition: Home - Self-Care Reason For Visit: ANKLE FRACTURE Discharge Diagnosis: same Activity: Per Instructions section Non-emergency contact: Surgeon Call non-emergency contact if: you have any medication questions, your pain is not controlled and your temperature is above 101 Follow-up/Referrals: Reji Anand MD [Surgeon] - An Tan DO [Primary Care Provider] - Diet: Regular Addtl Attending Provider Instructions: Reji Anand M.D. [facility] [address] [place] [address] POSTOPERATIVE INSTRUCTIONS ANKLE FRACTURES SPLINT/WOUND CARE: Leave your splint in place and keep the area clean and dry. Your splint will be taken down at your postop clinic visit. Do not remove it yourself. Do not walk on your splint. You should be completely non-weightbearing. Use your crutches as instructed. If the splint becomes wet, dirty, uncomfortable, or loose, please call the Orthopedic Clinic ([phone]) to arrange to be evaluated in the [facility]. Please call the Ortho Clinic if you have any questions or concerns PAIN CONTROL: Elevation is your best friend. Elevate the affected extremity above the level of your heart. Swelling is simply fluid. Elevation will allow the fluid to run down hill, reduce swelling, and decrease pain. The affected extremity should be continuously elevated for the first 2-3 days, with the exception of bathroom, hygiene, etc. You may be prone to swelling for several weeks, or until you return to normal function with your foot/ankle. Ice will help with pain and swelling. Place ice over the front of your ankle. There is abundant padding so it may take a while to feel like its working. Be sure to not let the ice leak into your splint. Medications: 1. Oxycodone (OxyIR) 1-2 tablet(s) orally every 4 hours for pain as needed. Use with Tylenol. Begin tapering OxyIR as soon as possible: reduce from 2 to 1 pills per dose, then spread out the doses over greater time intervals, then try to use only for therapy or for comfort while sleeping. Continue to use regular Tylenol until pain subsides. 2. Tylenol (325mg): 3 tablets every 8 hours orally. Regular dosing of Tylenol is an important part of your baseline pain control. Do not taper Tylenol until you have successfully tapered off of regular OxyIR. Do not take more than 3000mg of Tylenol per day. 3. Zofran: 1 tablet orally every 6 hours as needed for nausea related to anesthesia, pain, and narcotic medications. 4. Colace (100mg): take 1-2 tabs twice daily to avoid constipation from OxyIR or other narcotics. OVER THE COUNTER 5. Aspirin (325mg): Blood clots can be caused by fracture and immobility. Ankle fractures have a low risk of blood clots, but one aspirin tablet per day starting the day after surgery may reduce whatever minimal risk there is even further. The risk of clots goes down significantly after 30 days or as you return to normal mobility. WHEN TO CALL. If you develop any of the following symptoms, please contact the [facility] at [phone] or the Emergency room (after hours): Temperature greater than 101 taken twice, difficulty breathing, bleeding, fever and chills, increased pain unrelieved by pain meds, uncomfortable cast or splint, or any other concerns. Pending Studies at Discharge: No Stand-Alone Forms: [facility], Smoking Cessation Medications and DC Order Prescriptions: New ondansetron 4 mg tablet,disintegrating 4 mg PO Q6H PRN (Reason: nausea and vomiting) Qty: 10 0RF oxycodone 5 mg tablet 5 - 10 mg PO Q4H MDD 6 tablets PRN (Reason: pain) Qty: 20 0RF Continued aspirin 81 mg Tablet,Delayed Release (Dr/Ec) 81 mg PO QA Rx Instructions: take with food levothyroxine 100 mcg tablet 100 mcg PO DAILYBB famotidine 20 mg Tablet 20 mg PO AMHS PRN (Reason: Acid Reflux) estradiol 0.01 % (0.1 mg/gram) cream 1 applic VAGINAL .EVERY OTHER NIGHT Rx Instructions: pea sized application pediatric multivitamin Tablet,Chewable 1 tab PO DAILY azelastine 137 mcg (0.1 %) aerosol,spray 1 spray INTRANASAL HS Rx Instructions: from compound pharmacy mix mometasone and saline- uses as nasal rinse losartan 25 mg Tablet 25 mg PO QA Medical Marijuana 1 dose PO HS PRN (Reason: Pain) albuterol sulfate 90 mcg/actuation Hfa Aerosol Inhaler 1 inh INHALATION QID PRN (Reason: Shortness Of Breath Or Wheezing) Discharge Orders: Discharge Order (Routine); Ordered 03/08/23 Ordered By: Reji Anand Admission Data Admit Date/Time: 03/06/23 18:13 Attending Provider: Reji Anand Admit Provider: Reji Anand Primary Care Provider: An Tan Other Providers: Reji Anand ; [facility]
== END 2023-03-08 15:58 | disposition home health service (06) ==
LOC: ED 12:54 → 3N 18:13 → INTOOBSV 18:13 → 3N 20:02

== ENCOUNTER 2024-05-17 10:29 | Observation (INO) ==
--- NOTE | 2024-04-20 13:27 | PAT Medication Instructions ---
Medication Instructions Date of Service April 20, 2024 Home Medications aspirin 81 mg tablet,delayed release 81 mg PO QAM estradiol 0.01% (0.1 mg/gram) vaginal cream 1 applic vaginal .EVERY OTHER NIGHT Medical Marijuana 1 inh inhalation HS PRN Pain albuterol sulfate 90 mcg/actuation aerosol inhaler 1 inh inhalation QID PRN Shortness Of Breath Or Wheezing losartan 25 mg tablet 25 mg PO QAM Medical Marijuana 1 applic topical DAILY PRN prn Mometasone Azelastine Saline 1 spray intranasal HS cyanocobalamin (vitamin B-12) 1 tab PO QAM cyanocobalamin (vitamin B-12) 1,000 mcg/mL injection solution 1,000 mcg IM MONTHLY ergocalciferol (vitamin D2) 1,250 mcg (50,000 unit) capsule (Vitamin D2) 1,250 mcg PO WK levothyroxine 112 mcg tablet (Synthroid) 112 mcg PO QAM multivitamin 1 tab PO DAILY PRN prn MEDICATION INSTRUCTIONS: Continue as directed estradiol 0.01% (0.1 mg/gram) vaginal cream 1 applic vaginal .EVERY OTHER NIGHT cyanocobalamin (vitamin B-12) 1,000 mcg/mL injection solution 1,000 mcg IM MONTHLY albuterol sulfate 90 mcg/actuation aerosol inhaler 1 inh inhalation QID PRN Shortness Of Breath Or Wheezing (use if needed; BRING TO HOSPITAL) Medical Marijuana 1 applic topical DAILY PRN prn (do not use after bathing prior to surgery) ergocalciferol (vitamin D2) 1,250 mcg (50,000 unit) capsule (Vitamin D2) 1,250 mcg PO WK (do not take AM of surgery) Medical Marijuana 1 inh inhalation HS PRN Pain ASK your prescriber and surgeon aspirin 81 mg tablet,delayed release 81 mg PO QAM DO NOT take the morning of surgery cyanocobalamin (vitamin B-12) 1 tab PO QAM losartan 25 mg tablet 25 mg PO QAM multivitamin 1 tab PO DAILY PRN prn Take morning of surgery With a small sip of water, OTHERWISE NOTHING TO EAT OR DRINK AFTER MIDNIGHT: levothyroxine 112 mcg tablet (Synthroid) 112 mcg PO QAM Take evening before surgery Mometasone Azelastine Saline 1 spray intranasal HS Other Notes If you have any questions please call us at [phone] or [phone] or [phone] or [phone]
--- NOTE | 2024-04-26 10:46 | Anesthesiology Consultation ---
Date of Service April 26, 2024 Assessment & Plan (1) Encounter for pre-operative examination: - Infectious disease screening: Per assessment on 04/26/24: No known recent infectious disease contacts or current infectious disease symptoms. - Outpatient joint assessment: Pt currently scheduled for inpatient pathway. If surgeon requests review for outpatient joint pathway, patient is not recommended candidate for outpatient joint program from anesthesia standpoint based on available information. - Lidocaine allergy: Patient had lesion from neck removed with use of lidocaine by qualifications examiner in the . The next day, she had throat swelling/hives which she was resolved with prednisone. No known issues with lidocaine prior to these. Surgeon aware of lidocaine allergy. Patient had subsequent Left ankle ORIF 03/07/23 at [facility] done under GA + regional (ropivicaine used with PNB) at [facility]. No issues noted per post-op anesthesia progress note. Reviewed with Dr. Gibbs. [facility] allergy not able to see patient prior to surgery due to scheduling limitations. He feels patient okay to proceed with surgery as scheduled- at anesthesiologist discretion DOS regarding ultimate type of anesthesia (neuraxial vs GA). Chart Review Chart Review: Acceptable Risk for Surgery and Patient seen in Pre Admission Testing Teaching & Discussion Pre-Anesthesia Teaching/Discussion Notes: Instructed NPO after midnight before surgery,except medications with 15 cc of water. Medication instructions provided according to the PAT guidelines. History Surgery Operation Date: 05/17/24 07:00 Proposed Procedures p Right Total Knee Arthroplasty - Brian Robison MD Height/Weight Height: 5 ft 5 in Weight: 112.3 kg Allergies Allergy/AdvReac Type Severity Reaction Status Date / Time pine nut Allergy Severe Swelling Verified 04/15/24 10:15 of Lip/Tongue/Throat lidocaine Allergy Unknown Hives Verified 04/15/24 10:15 ibuprofen [From Advil] AdvReac Unknown Difficulty Verified 04/15/24 10:15 Breathing naproxen [From Aleve] AdvReac Unknown Difficulty Verified 04/15/24 10:15 Breathing Medications Home Medications Medication Instructions Recorded Confirmed Last Taken aspirin 81 mg tablet,delayed 81 mg PO QAM 09/12/22 04/15/24 Unknown release estradiol 0.01% (0.1 mg/gram) 1 applic vaginal .EVERY OTHER NIGHT 09/12/22 04/15/24 Unknown vaginal cream Medical Marijuana 1 inh inhalation HS PRN Pain 02/27/23 04/15/24 Unknown albuterol sulfate 90 mcg/actuation 1 inh inhalation QID PRN Shortness 02/27/23 04/15/24 Unknown aerosol inhaler Of Breath Or Wheezing losartan 25 mg tablet 25 mg PO QAM 02/27/23 04/15/24 03/06/23 08:00 25 Medical Marijuana 1 applic topical DAILY PRN prn 04/15/24 04/15/24 Unknown Mometasone Azelastine Saline 1 spray intranasal HS 04/15/24 04/15/24 Unknown cyanocobalamin (vitamin B-12) 1 tab PO QAM 04/15/24 04/15/24 Unknown cyanocobalamin (vitamin B-12) 1,000 mcg IM MONTHLY 04/15/24 04/15/24 Unknown 1,000 mcg/mL injection solution ergocalciferol (vitamin D2) 1,250 1,250 mcg PO WK 04/15/24 04/15/24 Unknown mcg (50,000 unit) capsule (Vitamin D2) levothyroxine 112 mcg tablet 112 mcg PO QAM 04/15/24 04/15/24 Unknown (Synthroid) multivitamin 1 tab PO DAILY PRN prn 04/15/24 04/15/24 Unknown Past Medical History Medical History Anxiety Asthma Excercise-induced - no inhaler use x years Depression GERD (gastroesophageal reflux disease) Glaucoma History of eustachian tube dysfunction "Deformed" sinuses and eustachian tubes HTN (hypertension) Hx-TIA (transient ischemic attack) Possible TIA (09/2022) Hypothyroid MGUS (monoclonal gammopathy of unknown significance) Follows with Dr. Lim/S Osteoarthritis Seasonal allergies Sleep apnea "Borderline" No current device Exercise / Class Metabolic Activity II 4-5 Yardwork/Stairs/Walk up hill Past Family History Family History Other No family history of adverse response to anesthesia Past Surgical History Surgical History Family history of reaction to anesthesia Mother: hypotension H/O: hysterectomy History of anesthesia reaction Hypotension after wisdom teeth extraction (1970s), no issues since History of ankle surgery left Hx of colonoscopy Hx of dilation and curettage Hx of sinus surgery Hx of surgical procedure uterine artery embolization Hx of tonsillectomy Hx of wisdom tooth extraction Past Anesthesia History Other * Patient: Hypotension after wisdom teeth extraction (1970s), no issues since * Mother: Hypotension History of PONV No Hx of PONV and Hx of Motion Sickness Social History Smoking Status: Never smoker Do You Dip or Chew Tobacco: No Hx Alcohol Use: No Hx Substance Use: Yes substance use type: marijuana (Medical marijuana) Review of Systems Occasional palpitations. Patient denies chest pain, shortness of breath, dyspnea on exertion, fever, chills, cough, wheezing. Physical Exam Vital Signs BP 114/72 P 62 TEMP 98.3 SP02 98%RA RESP 18 Physical Full cervical extension range of motion. Full TMJ range of motion. TMD > 3.5 finger breaths Mallampati Score I Dentition: intact Lungs: clear throughout to auscultation Cardiac: regular rate and rhythm, no murmurs noted Spine: normal Carotid arteries: negative bruit Extremities: no LE edema Lab Results Anesthesia Preop Results Results Anesthesia Widget: WBC 8.88 K/ul (4.8-10.8) 04/26/24 Hgb 13.3 g/dl (12.0-16.0) 04/26/24 Hct 39.0 % (37.0-47.0) 04/26/24 Plt 344 K/uL (130-400) 04/26/24 Na 136 mmol/L (136-145) 04/26/24 K 4.3 mmol/L (3.5-5.1) 04/26/24 Cl 103 mmol/L (98-107) 04/26/24 CO2 25 mmol/L (21-32) 04/26/24 BUN 16 mg/dl (6-23) 04/26/24 Creat 0.71 mg/dl (0.6-1.2) 04/26/24 Glucose Level 95 mg/dl (70-99(Fasting)) 04/26/24 PT 10.3 Seconds (9.0-12.0) 04/26/24 PTT 30 Seconds (21-31) 04/26/24 INR 0.9 (0.9-1.1) 04/26/24 Blood Type O Positive 04/26/24 Antibody Screen NEGATIVE 04/26/24 Testing Electrocardiogram Date: 04/26/24 SB at 59bpm. "Otherwise normal ECG" Chest X-Ray Date: 04/26/24 FINDINGS: No lines and tubes are seen. The cardiomediastinal silhouette is normal. The lungs are clear. No evidence of pleural effusion or pneumothorax. IMPRESSION: No acute chest disease.
--- NOTE | 2024-05-13 17:41 | History & Physical Report ---
Date of Service May 13, 2024 Assessment & Plan (1) Bilateral primary osteoarthritis of knee: 64-year-old female with advanced bilateral knee DJD right side more symptomatic than the left. She failed conservative treatment. She like to proceed with a right knee replacement. Plan: We are going to take her to the operating room and do a right total knee replacement. The risks and benefits of this procedure were explained to the patient in detail. She understands and desires to proceed. Informed consent was obtained. She is planned to be discharged to home with some home health. Will use aspirin for DVT prophylaxis. (2) GERD (gastroesophageal reflux disease): (3) HTN (hypertension): (4) Hx-TIA (transient ischemic attack): (5) Asthma: (6) Hypothyroid: (7) Depression: History of Present Illness Chief Complaint: . Persistent right knee pain and discomfort. Primary Care Provider: An Tan DO . The patient is a 64-year-old female referred by Dr. Anand for treatment of her knees. Fairly long history of bilateral knee pain discomfort described to gotten worse over time. The right knee bothers her more than the left. She be en through extensive conservative treatment over the years including multiple injections. The last shot really did not help much at all. Left knee seems to be doing okay but the right knee really limits her lifestyle. She is got global pain for more she is on it the more it hurts. She is ready to have it fixed. Allergies Allergy/AdvReac Type Severity Reaction Status Date / Time pine nut Allergy Severe Swelling Verified 04/15/24 10:15 of Lip/Tongue/Throat lidocaine Allergy Unknown Hives Verified 04/15/24 10:15 ibuprofen [From Advil] AdvReac Unknown Difficulty Verified 04/15/24 10:15 Breathing naproxen [From Aleve] AdvReac Unknown Difficulty Verified 04/15/24 10:15 Breathing Home Medications Medication Instructions Recorded Confirmed Type aspirin 81 mg tablet,delayed 81 mg PO QAM 09/12/22 04/15/24 History release estradiol 0.01% (0.1 mg/gram) 1 applic vaginal .EVERY OTHER NIGHT 09/12/22 04/15/24 History vaginal cream Medical Marijuana 1 inh inhalation HS PRN Pain 02/27/23 04/15/24 History albuterol sulfate 90 mcg/actuation 1 inh inhalation QID PRN Shortness 02/27/23 04/15/24 History aerosol inhaler Of Breath Or Wheezing losartan 25 mg tablet 25 mg PO QAM 02/27/23 04/15/24 History Medical Marijuana 1 applic topical DAILY PRN prn 04/15/24 04/15/24 History Mometasone Azelastine Saline 1 spray intranasal HS 04/15/24 04/15/24 History cyanocobalamin (vitamin B-12) 1 tab PO QAM 04/15/24 04/15/24 History cyanocobalamin (vitamin B-12) 1,000 mcg IM MONTHLY 04/15/24 04/15/24 History 1,000 mcg/mL injection solution ergocalciferol (vitamin D2) 1,250 1,250 mcg PO WK 04/15/24 04/15/24 History mcg (50,000 unit) capsule (Vitamin D2) levothyroxine 112 mcg tablet 112 mcg PO QAM 04/15/24 04/15/24 History (Synthroid) multivitamin 1 tab PO DAILY PRN prn 04/15/24 04/15/24 History Past Med/Surg History Problem List (Updated 05/13/24 @ 17:40 by Brian Robison MD) Bilateral primary osteoarthritis of knee Encounter for pre-operative examination Medical History Glaucoma History of eustachian tube dysfunction "Deformed" sinuses and eustachian tubes Depression Anxiety MGUS (monoclonal gammopathy of unknown significance) Follows with Dr. Lim/[place] Osteoarthritis GERD (gastroesophageal reflux disease) HTN (hypertension) Hx-TIA (transient ischemic attack) Possible TIA (09/2022) Sleep apnea "Borderline" No current device Asthma Excercise-induced - no inhaler use x years Hypothyroid Seasonal allergies Surgical History Family history of reaction to anesthesia Mother: hypotension History of anesthesia reaction Hypotension after wisdom teeth extraction (1970s), no issues since History of ankle surgery left Hx of surgical procedure uterine artery embolization Hx of wisdom tooth extraction Hx of tonsillectomy Hx of sinus surgery Hx of dilation and curettage Hx of colonoscopy H/O: hysterectomy Family History Other No family history of adverse response to anesthesia Social History Smoking Status: Never smoker Second Hand Exposure: No; Do You Dip or Chew Tobacco: No; Hx Alcohol Use: No Hx Substance Use: Yes Substance Use Type Other:: medical marijuana Preferred Language: Lao Communication Ability: Effective 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 Physical Exam . Physical examination reveals a pleasant middle-age female. Looks be in pretty good health. Examination of the right knee reveals the patient ambulates independently. She clearly favors the right knee. Slight bit of a limp is got varus alignment. Tender with medial joint line. Moderate soft tissue envelope. Range of motion about 5-1 20. No instability. No pain with hip motion. Constitutional WD/WN, vitals as above Neck trachea midline, no thyromegaly Respiratory normal respiratory effort, lungs clear to auscultation Cardiovascular RRR, no murmur, no edema Gastrointestinal (Abdomen) normal bowel sounds, soft, nontender, no hepatosplenomegaly Results & Data Results & Data Laboratory Results . Diagnostic Findings . X-rays of the right knee reviewed. Shows advanced right knee DJD. She got complete loss of medial joint space. Got osteophytes medially. Some chondrocalcinosis. Is got similar but less severe disease on the left side. PG Care Time/CCT Total # of Minutes Spent Total Time Spent with Patient: Total time spent is greater than 50% in coordination of care (as documented) at patient's floor/unit and/or counseling patient: Coding Level of Care Code None Diagnoses Bilateral primary osteoarthritis of knee M17.0 GERD (gastroesophageal reflux disease) K21.9 HTN (hypertension) I10 Hx-TIA (transient ischemic attack) Z86.73 Asthma J45.909 Hypothyroid E03.9 Depression F32.A
[~2024-05-17 10:29] MED LIST: BUPIVACAINE 0.25% PF 30 ML VIAL ONE; BUPIVACAINE 0.5 % 5 MG/1 ML PF 10ML VIAL ONE; CeleBREX 200 MG CAP PO SCH; ROPIV 0.5% 246mg, Ketorolac 30mg, EPINEPHrine 0.5mg in NSS INFIL SCH
--- NOTE | 2024-05-17 10:42 | History & Physical Bridge Note ---
Date of Service May 17, 2024 History & Physical Bridge Note I have examined the patient, reviewed the History & Physical and in the interval since the performance of the History & Physical I have noted the following changes of clinical significance: no changes noted
[2024-05-17] MEDS ORDERED: ONDANSETRON INJ 2 MG/ML 2 ML VIAL IV PRN ×2 (10:52→15:53)
[2024-05-17] MEDS ORDERED: ePHEDrine sulfate 50 MG/ML AMP IV PRN (10:52)
[2024-05-17] MEDS ORDERED: fentaNYL citrate PF 100 MCG/2 ML VIAL IV PRN (10:52)
[2024-05-17] MEDS ORDERED: ATROPINE SULFATE 0.1 MG/ML 10ML SYR IV PRN (10:52)
[2024-05-17] MEDS: LR 60ML/HR IV SCH (11:16)
[2024-05-17] MEDS: FAMOTIDINE 20 MG TAB PO SCH (11:18)
[2024-05-17] MEDS: ACETAMINOPHEN 500 MG TAB PO SCH ×2 (11:18→20:42)
[2024-05-17] MEDS: METOCLOPRAMIDE HCL 10 MG TABLET PO SCH (11:18)
[2024-05-17] MEDS: LR 15ML/HR IV SCH (11:20)
[2024-05-17] MEDS ORDERED: MIDAZOLAM HCL 1 MG/ML 2ML VIAL ONE (11:48)
[2024-05-17] MEDS ORDERED: ONDANSETRON INJ 2 MG/ML 2 ML VIAL ONE (12:13)
[2024-05-17] MEDS ORDERED: fentaNYL citrate PF 100 MCG/2 ML VIAL ONE (12:13)
[2024-05-17] MEDS ORDERED: DEXAMETHASONE SOD INJ 4 MG/ML VIAL ONE (12:13)
[2024-05-17] MEDS ORDERED: PROPOFOL IV EMULSION 10 MG/ML 20 ML VIAL IV ONE (12:13)
[2024-05-17] MEDS: dexAMETHasone**PF** 10 MG/ML VIAL IV ONE (12:33)
[2024-05-17] MEDS: dexAMETHasone**PF** 10 MG/ML VIAL ONE (12:33)
[2024-05-17] MEDS ORDERED: ROPIVACAINE 0.5% 5 MG/ML 30 ML VIAL ONE (12:35)
[2024-05-17] MEDS: ceFAZolin 2000MG 2,000 MG/15 ML SYR IV SCH ×2 (12:49→20:42)
[2024-05-17] MEDS ORDERED: KETAMINE HCL 10MG/ML SYR ONE (12:58)
[2024-05-17] MEDS ORDERED: HYDROmorphone INJ 2 MG/ML SYR/VIAL ONE (12:58)
[2024-05-17] MEDS ORDERED: diphenhydrAMINE 50 MG/ML VIAL ONE (13:27)
[2024-05-17] MEDS: TRANEXAMIC ACID 1,000 MG **IV Intra-op IV SCH (13:39)
[2024-05-17] MEDS: BUPIVACAINE/EPINEPHRINE 0.5% MPF 1:200,000 30 ML VIAL ONE (13:44)
[2024-05-17] MEDS ORDERED: GLYCOPYRROLATE 0.2 MG/ML VIAL ONE (13:45)
[2024-05-17] MEDS: ALLERGY Noted to ORDERED Medication SCH (13:45)
--- NOTE | 2024-05-17 14:34 | Operative Report ---
PG Post Operative Report Pre & Post Diagnosis Operation Date: 05/17/24 12:30 Pre-Op Diagnosis: Right Knee Degenerative Joint Disease Post-Op Diagnosis: Right Knee Degenerative Joint Disease I identified the patient and participated in the time-out.: Yes Procedure Operation Date: 05/17/24 12:30 Actual Procedures p Right Total Knee Arthroplasty(Right) - Brian Robison MD Surgeon Brian Robison MD Flamer Sealer Ab El PA-C Estimated Blood Loss 50 Findings Consistent with Post-Op Diagnosis Operative findings revealed advanced right knee medial compartment DJD. She had a pretty extensive grade 4 [id number] disease the entire medial compartment. Less severe but significant grade 4 changes in the patellofemoral joint. Moderate-sized joint effusion. Specimens Right knee sent for pathology. Anesthesia Type General Regional Complications none Disposition Accompanied Patient To Recovery: No Indications Patient is 64-year-old female is had a long history of gradually progressive increasing pain and discomfort in both knees. She been to extensive conservative treatment which became less successful over time. X-rays show bilateral knee arthritis. She would like to proceed with right total knee arthroplasty. Description of Procedure Operative implants consisted of: 1. Biomet Vanguard size 70 right posterior stabilized femoral component. 2. Biomet size 71 tibial tray. 3. 10 mm posterior stabilized polyethylene insert. 4. 31 x 8 all poly patella. The patient was taken the op room, identified, placed on the operating table in the supine position. All contact areas were appropriately padded. IV antibiotics fibra anesthesia team. A general anesthetic was implemented by the anesthesia team. A Beebe catheter was placed in sterile fashion. Right thigh tent was then placed. The right lower extremity was then prepped and draped in usual sterile fashion. The right leg was elevated and exsanguinated with use of an Esmarch and a turn was placed at 300 mmHg. An anterior approach to the right knee was then performed to longitudinal incision centered over the patella. Sharp dissection carried through subcutaneous tissue down the extensor mechanism. A medial parapatellar arthrotomy incision was made. Some subperiosteal dissection was carried out medially. The fat pad was resected from his patella tendon. Lateral patellofemoral ligament was released. Patella subluxated laterally and the knee was flexed. The osteophytes taken off distal femur. ACL and PCL were then released from distal femur the tibia subluxated anteriorly. The external treatment LYMErix then placed on the anterior face the tibia and adjusted 14 mm medially. Proximal tibial cut was made remove 2 mm of bone from the medial side. The tibia sized to a size 71. Attention drawn the femur. The distal femur examined the sharp drill. Intramedullary canal was suction. Right 5 degree valgus cutting guide was placed. The distal femoral cutting block was pinned in place. This femoral cut was made to take an additional 3 mm of bone off distal femur. The femur was then sized to a size 70. The AP cutting block was pinned parallel to the epicondylar axis which was 3 degrees of external rotation. The anterior cut, anterior chamfer, posterior cut, posterior chamfer cuts were made. The box cutting guide was placed slightly laterally. The box cut was made. The knee was flexed. The remnants of the medial and lateral menisci were excised. The osteophytes taken off the posterior aspect of femur. The trial femoral component was placed. The tibial tray was pinned Valorie external rotation and the drill and stem punch used to create defect in proximal tibia for the tibial tray. The knee was then trialed and the 10 mm insert fit most appropriately. Attention drawn the patella. The patella was cleaned of all soft tissue. Patella thickness measured 21 mm in thickness was cut down to 13. Was sized to a size 31 patella. The lug holes were drilled for 31 patella. The lateral osteophytes removed. Patella button was placed. Knee was taken through range of motion and the patella tracked nicely with no thumbs test. Attention drawn to placing the permanent components. All trial components were removed. Bone plug was placed into the distal femur limit blood loss. A double batch Palacos G cement was mixed. A Biomet Vanguard size 70 right posterior stabilized femoral component, size 71 tibial tray, a 10 mm posterior Byce polyethylene insert, and a 31 x 8 all poly patella then cemented in place. The knee was brought out into full extension till cement hardened. Final cement check was then performed. The pericapsular tissues were injected with 60 cc of half percent Marcaine with epinephrine. Patient did receive 1 g tranexamic acid. The tourniquet was then let down for final tourniquet time of 49 minutes. Hemostasis assured use electrocautery. Extensor Metros then closed with combination 1 PDS suture #1 Vicryl suture in [id number]-[id number] fashion. Extensor Meclomen checked found to be intact the subcutaneous tissues then closed with 2 Dexon suture in a buried interrupted fashion skin was closed skin kimberli. Leg was then cleaned and dried and a sterile dressing with Xeroform, 4 fours, sterile cast padding, Bruce bandage were applied. Patient then transferred to the recovery in stable condition. Patient tolerated the procedure well and there were no complications. Ab El, my physician college sports assistant, was present for the entire procedure. His assistance was essential and required for appropriate patient positioning, prepping and draping, surgical exposure, performing the technical details of the operation, placement the implants, closure of the wound, and placement of the sterile bandage. I attest to the content of the Intraoperative Record and any orders documented therein. Any exceptions are noted below.
[2024-05-17] MEDS ORDERED: HYDROmorphone INJ 1 MG/ML SYRINGE IV PRN (14:57)
--- NOTE | 2024-05-17 14:57 | Anesthesiology Progress Note ---
Date of Service May 17, 2024 Anesthesia Post Procedure Vital Signs Vital Signs: Temp Pulse Resp BP Pulse Ox O2 Del Method 05/17/24 11:00 36.6 C 72 20 151/91 H 98 Room Air Pain Intensity Right Knee: Pain Intensity: 1 Transfer of Care Handoff Completed per policy Notes Mental Status: alert / awake / arousable and participated in evaluation Patient Amnestic to Procedure: Yes Nausea / Vomiting: adequately controlled Pain: adequately controlled Airway Patency, RR, SpO2: stable & adequate BP & HR: stable & adequate Hydration State: stable & adequate Anesthetic Complications: no major complications apparent and Pt Satisfied with anesthetic care
--- NOTE | 2024-05-17 14:57 | XRay Report ---
XR knee RT 1 or 2V routine CLINICAL HISTORY: Postoperative evaluation. COMPARISON: Right knee radiographs August 12, 2023. FINDINGS: Alignment of the total right knee arthroplasty is anatomic. There is no periprosthetic fra cture or unexpected radiopaque foreign body. There are skin kimberli. IMPRESSION: Expected findings following total right knee arthroplasty. ACT 112: Negative or not required by law. Electronically signed by: Chago Arias M.D. 05/17/2024 2:56 PM
[2024-05-17] MEDS ORDERED: MEDICAL MARIJUANA TOP PRN (15:53)
[2024-05-17] MEDS ORDERED: bisacodyL 10 MG SUPP PR PRN (15:53)
[2024-05-17] MEDS ORDERED: MAGNESIUM HYDROXIDE SUSP 30 ML UDC PO PRN (15:53)
[2024-05-17] MEDS ORDERED: diphenhydrAMINE Capsule 25 MG CAP PO PRN (15:53)
[2024-05-17] MEDS ORDERED: NON-FORMULARY MEDICATION (Multivitamin Tablet) PO PRN (15:53)
[2024-05-17] MEDS ORDERED: NON-FORMULARY MEDICATION (Medical Marijuana 1 PUFFS) INH PRN (15:53)
[2024-05-17] MEDS ORDERED: ALUMINUM/MAGNESIUM SUSP 30 ML UDC PO PRN (15:53)
[2024-05-17] MEDS ORDERED: NALOXONE HCL 0.4 MG/1 ML VIAL/CARP IV PRN (15:53)
[2024-05-17] MEDS ORDERED: NO NSAIDS SCH (15:53)
[2024-05-17] MEDS ORDERED: METOCLOPRAMIDE HCL INJ 5 MG/ML 2 ML VIAL IV PRN (15:53)
[2024-05-17] MEDS ORDERED: ERGOCALCIFEROL 1250 MCG (50,000 UNITS) CAP PO SCH (15:53)
[2024-05-17] MEDS: SODIUM CHLORIDE 0.9% 1,000 ML IV SCH (15:58)
--- OUTSIDE RECORDS SUMMARY | 2024-05-17 16:41 | External Medical Summary | Summary of Care ---
Author Name Unknown Organization [facility] Address [address] [place] [address] Phone [phone] Care Team Providers Care Assistant Portfolio Manager Name Role Phone Britney An Browning DO Primary Care Provider Reason for Visit * Reason Comments Medication Administration B12 Encounter Details Date Type Department Care Team (Late st Contact Info) Description 04/29/2024 8:30 AM EDT Immunization/Inj ection Ancillary [facility] [address] [place] [address] Park, Nurse [facility] [address] [place] [address] Allergies Active Allergy Reactions Criticality Noted Date Comments Naproxen High 05/02/2022 Difficulty breathing Ibuprofen High 05/02/2022 Difficulty breathing Lidocaine Hives 10/14/2021 [place] Wheezing 10/14/2021 Bupivacaine Edema Other 12/11/2021 documented as of this encounter (statuses as of 04/29/2024) Medications Medication Sig Dispensed Refills Start Date End Date Status Multivitamin Adult Extra C Oral Tablet Chewable Take by mouth daily . Active Azelastine HCl 0.1 % Nasal SolutionIndications :Hypertrophy of inferior nasal turbinate,Nasal congestion,History of sinus surgery,Snoring,Per ennial allergic rhinitis with seasonal variation Administer into nostril 1 Nalcrest in the morning AND 1 Nalcrest before bedtime. 30 mL 2 06/07/2022 Active Additional Information Patient taking differently:1 Nalcrest Nasal BID (.AM/PM),Mix with flonase and saline, Reported on 09/12/2022 Estradiol 0.1 MG/GM Vaginal Cream (Estrace) Apply pea sized amount (0.5 gm) vaginally every other night 42.5 g 3 06/12/2022 Active Aspirin 81 MG Oral Tablet ChewableIndications :Slurred speech,History of TIA (transient ischemic attack) Take 1 Tablet by mouth in the morning. with food.--has taken in past. 1 Tablet 09/18/2022 Active Continuation of patient use of medical marijuana is approved at bedtime. 02/27/2023 Active Budesonide Powder Use as directed. 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 TAKE 1 TABLET IN THE MORNING, AT LEAST 30 MINUTES PRIOR TO BREAKFAST OR OTHER MEDICATIONS 90 Tablet 3 03/04/2024 Active Losartan Potassium 25 MG Oral Tablet (Cozaar)Indications :HTN, goal below 130/80 TAKE 1 TABLET IN THE MORNING 90 Tablet 3 03/05/2024 Active Hospital, Clinic, or Other Facility Administered Medication Ordered Dose Route Frequency Start Date End Date Status vitamin b-12 (Cyanocobalamin) inj 1,000 mcgIndications:B12 deficiency 1000 mcg IM [id number] 03/28/2024 02/27/2025 Active documented as of this encounter (statuses as of 04/29/2024) Active Problems Problem Noted Date Diagnosed Date Chronic pain of right knee 06/10/2023 High risk for fracture due to osteoporosis by DE XA scan 06/10/2023 Prediabetes 06/10/2023 HTN, goal below 140/90 06/10/2023 Vitamin D deficiency 06/10/2023 Closed fracture of left ankle 06/10/2023 Cystocele with uterine prolapse 10/14/2021 MGUS (monoclonal gammopathy of unknown significa nce) 10/14/2021 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 Other fatigue 10/14/2021 Status post embolization of uterine artery 10/14 Adenomatous polyp of colon 10/14/2021 documented as of this encounter (statuses as of 04/29/2024) Resolved Problems Problem Noted Date Diagnosed Date Resolved Date Submucous leiomyoma of uterus 10/14/2021 06/10/2023 documented as of this encounter (statuses as of 04/29/2024) Immunizations Name Administration Dates Next Due COVID-19 mRNA, LNP-s, No Pre serve, 2-Dose Series (Mill33) 12/17/2020,11/22/2020 COVID-19, LNP-s, No Preserve , Tommy-sucrose, Ages 12+ (Pfizer) 12/26/2021,06/30/2021 Covid-19, Mrna, Lnp-s, Pf, B ivalent, 30 Mcg, IM, 12 yrs and above (Pfizer) 06/03/2022 Seasonal Influenza Virus Vac cine, Unspecified Formulation 04/21/2022 Seasonal Influenza, PF, 6 M & above, IM , (FluLaval or Fluzone) 06/10/2023 Seasonal Influenza, Quadrivalent, No Preserve, P eds 04/21/2022 TDAP (age 10 and older)(Boostrix) 12/14/2023 Zoster Vaccine Recombinant (Shingrix) 01/23/2023 ,11/05/2022 documented as of this encounter Social History Tobacco Use Types Packs/Day Years Used Date Smoking Tobacco: Never Smokeless Tobacco: Never Alcohol Use Standard Drinks/Week Comments Not Currently 0 (1 standard drink = 0.6 oz pur e alcohol) PHQ-2 Answer Date Recorded PHQ Adult Total Score 0 12/14/2023 Hunger Vital Sign Answer Date Recorded Within the past 12 months, y ou worried that your food would run out before you got the money to buy more. Never true 12/10/19 24 Within the past 12 months, t he food you bought just didn't last and you didn't have money to get more. Never true 12/10/2023 Childcare Answer Date Recorded Do you feel overwhelmed with taking care of a child, family member or friend? No 12/10/2023 Does your family need help f inding childcare? (Household - for ages 0-17 years) Not on file 12/10/2023 Clothing Answer Date Recorded Have you been unable to get clothing when it was really needed? No 12/10/2023 Is your family able to get c lothes or diapers when needed? (Household - for ages 0-17 years) Not on file 12/10/2023 Personal Safety Answer Date Recorded Do you feel unsafe or have concerns for your saf ety? No 12/10/2023 Do you have concerns for you r family's safety? (Household - for ages 0-17 years) Not on file 12/10/2023 Utilities Answer Date Recorded Do you have trouble paying y our heating, water, or electric bill? No 12/10/2023 Is your family able to pay t he heat, water, or electric bill? (Household - for ages 0-17 years) Not on file 12/10/2023 Does your family have access to good internet? (Household - for ages 0-17 years) Not on file 12/10/2023 Employment Status Answer Date Recorded Are you unemployed or without regular income? Ye s 12/10/2023 Does the household have a [facility] source of income? (Household - for ages 0-17 years) Not on file 12/10/2023 Social Connections Answer Date Recorded How often do you feel lonely or isolated from those around you? Sometimes 12/10/2023 Financial Resource Strain Answer Date R ecorded Do you have any trouble payi ng for your medications, or do you think you might in the future? No 12/10/2023 Does your family have troubl e paying for medicine? (Household - for ages 0-17 years) Not on file 12/10/2023 Transportation Needs Answer Date Record ed READ ONLY Do you have troubl e getting a ride to medical visits or work? Never True 12/10/2023 Does your family have a hard time getting a ride to doctors visits? (Household - for ages 0-17 years) Not on file 12/10/2023 Has lack of transportation k ept you from medical appointments, meetings, work, or from getting things needed for daily living? Check all that apply. (Adult - for ages 18 years and over) Not on file 12/10/2023 Do you (or your family) have trouble finding or paying for a ride (transportation)? (Household - for ages 0-17 years) Not on file 12/10/2023 Housing Stability Answer Date Recorded Do you currently live in a s helter or have no steady place to sleep at night? No 12/10/2023 READ ONLY Do you think you a re at risk of becoming homeless? No 12/10/2023 Does your family worry about paying for your home or becoming homeless? (Household - for ages 0-17 years) Not on file 0 12/10/2023 Are you homeless or worried that you might be in the future? (Adult - for ages 18 years and over) Not on file Are you (or your family) susy eless or worried that you might be in the future? (Household - for ages 0-17 years) Not on file Food Insecurity Answer Date Recorded Do you need food for this week? No 12/10/2023 Are you able to get enough f ood for your family? (Household - for ages 0-17 years) Not on file 12/10/2023 Does your family need food t his week? (Household - for ages 0-17 years) Not on file 12/10/2023 Do you always have enough fo od for your family? (Household - for ages 0-17 years) Not on file 12/10/2023 Sex and Gender Information Value Date Recorded Sex Assigned at Female 12/10/2023 10:06 AM EDT Gender Identity Female 12/10/2023 10:06 AM EDT Sexual Orientation Straight 12/10/2023 10 :06 AM EDT Job Start Date Occupation Industry Not on file Not on file Not on file documented as of this encounter Progress Notes * Marion Gaitan LPN - 04/29/2024 8:45 AM EDT Pre-Administration Time Out Procedure Performed: Yes Patient Identified (Ask Name/Date of ): Yes Does the patient have a fever greater than 101 degrees today? No Patient allergic to latex? No Has the patient ever fainted after receiving an injection? No VFC Stock: No Immunization(s) verified: Yes, Immunization Name: B12, VIS S Verified Shot(s) with Parent(s)/Patient: Yes documented in this encounter Plan of Treatment Upcoming Encounters Date Type Department Care Team (Late st Contact Info) Description 05/30/2024 10:30 AM EDT Immunization/Injec tion Ancillary [facility] [address] [place] [id number] Nurse Matilda Fam Pr[facility] [address] [facility] [place] [id number] 06/20/2024 10:40 AM EST Office Visit Family Practice [facility] [address] [place] [address] An Tan, [address] [facility] [place] [id number] 06/27/2024 2:15 PM EST Office Visit Urogynecology [facility] [address] [place] [address] Josue Graves MD [address] [place] [address] Nurse Joy Clemenst Gray [address] [place] [address] 08/11/2024 12:40 PM EST Office Visit Dermatology [facility] [address] [place] [address] Leyda Davis PA-C [address] [facility] [place] [address] 11/14/2024 11:45 AM EDT Imaging Radiology [facility] [address] [facility] [address] [place] [address] 12/22/2024 2:00 PM EDT Office Visit Hematology/Oncology [facility] [address] [place] [id number] Lucrecia Cage CRNP [address] [place] [address] [place] [id number] 03/23/2025 10:15 AM EDT Office Visit Ophthalmology, [facility] [address] [place] [address] Gianni Bustos, DO [address] [facility] [place] [address] Scheduled Procedures Name Priority Associated Diagnoses Date/Ti me COLONOSCOPY FLEXIBLE PROXIMAL DIAGNOSTIC Recall History of colon polyps Health Maintenance Due Date Last Done Comments Cologuard 2005 Fecal Occult Blood Test 2005 Sigmoidoscopy 2005 *BISPHONATE OR OTHER ACCEPTABLE MEDICATION NEEDED FOR OSTEOPOROSIS (REFER TO SMARTSET #1146) 06/13/2023 Influenza Vaccine (FLU shot) (#1) 2024 06/10/2023, 04/21/2022, 04/21/2022 Mammogram 11/11/2024 11/12/2023, 04/0 01/2023, 10/16/2022, Additional history exists GFR 12/08/2024 12/09/2023, 05/0 03/2023, 10/16/2022, Additional history exists HbA1c 12/08/2024 12/09/2023, 10/16/2022 TSH 12/08/2024 12/09/2023, 10/30/2021 Depression Screening 12/13/2024 12/14/2023 DXA Scan 08/24/2025 08/24/2023 Albumin/Creatinine Ratio 12/13/2026 12/14/2023 Lipid Panel 12/08/2028 12/09/2023, 10/30/2021 Colonoscopy 07/01/2033 07/01/2023, 07/01/2023 Colorectal Cancer Screening 07/01/2033 DTap/Tdap Vaccines (2 - Td or Tdap) 12/13/2033 12/14/2023 Zoster Vaccines Completed 01/23/2023, 11/05/2022 VITAMIN D LEVEL ONCE IN A LIFETIME-USE SMARTSET# 81017 Completed 12/09/2023, 10/16/2022, 10/30/2021 COVID-19 Vaccine Completed 04/08/2024, 08/2021, 12/26/2021, Additional history exists HPV (Gardasil) Vaccine Aged Out No lo nger eligible based on patient's age to complete this topic Hepatitis B Vaccine Aged Out No longe r eligible based on patient's age to complete this topic MENINGOCOCCAL (MENACTRA/MENVEO) Aged Out No longer eligible based on patient's age to complete this topic Pneumococcal Vaccine: Pediatrics (0 to 5 Years) and At-Risk Patients (6 to 64 Years) Aged Out No longer eligible based on patient's age to complete this topic documented as of this encounter Medical Devices Implanted Type Area Blue Print Control Clerk Device Identifier Shelf Expiration Date Model / Serial / Lot Vertessa Lite Y-Mesh 26 X 4 X 3 Cm Implanted:Qty: 1 on 05/01/2022 by Josue Graves MD at OR [facility] N/A: Abdomen [employer] 01/20/2027 [id number] / / Desara One Single Incision Sling System Implanted:Qty: 1 on 05/01/2022 by Josue Graves MD at OR [facility] N/A: Abdomen [employer] 07/14/2023 [id number] / / [id number] documented as of this encounter Administered Medications Active Administered Medications - up to 3 most recent administrations Medication Order MAR Action Action Date Dose Rate Site vitamin b-12 (Cyanocobalamin) inj 1,000 mcg 1,000 mcg, Intramuscular, [id number], First dose on Thu03/28/24 at 1300, Last dose on Thu01/30/25 at 1300, For 12 doses Given 04/29/2024 8:44 AM EDT 1,000 mcg Deltoid Left Upper Given 04/01/2024 8:31 AM EDT 1,000 mcg De ltoid Left Upper documented in this encounter Advance Directives * Full Code (Latest Code Status on File) Date Activated Date Inactivated Comments 05/01/2022 11:47 AM 05/02/2022 5:18 PM This order reflects the patients wishes and were consensually agreed upon. Question Answer Comments Discussion of Advance Directives occurred with: Patient Does the patient have a Living Will? No Does the patient have Health Care Power of Attor lucretia? No Care Teams Assistant Portfolio Manager Relationship Specialty Start Date End Date An Tan DO [address] [place] [address] PCP - General Family Medicine 10/17/21 documented as of this encounter
[2024-05-17] MEDS: ASCORBIC ACID 500 MG TAB PO SCH (17:08)
[2024-05-17] MEDS: ASPIRIN 81 MG ECTAB PO SCH (20:42)
[2024-05-17] MEDS: SENNA 8.6 MG TAB PO SCH ×2 (20:42→20:53)
[2024-05-17] MEDS: AZELASTINE HCL 0.1% NASAL 200 SPRAYS/27,400 MCG BTL SCH (20:42)
[2024-05-17] MEDS: DOCUSATE SODIUM 100 MG CAP PO SCH (20:43)
[2024-05-17] MEDS: TRANEXAMIC ACID / 0.7% NACL 1,000 MG/100 ML BAG IV SCH (21:33)
[2024-05-18] MEDS: oxyCODONE HCL IR 5 MG TAB (IMMEDIATE RELEASE) PO PRN (03:35)
[2024-05-18] MEDS: LEVOTHYROXINE SODIUM 112 MCG TABLET PO SCH (05:51)
--- NOTE | 2024-05-18 07:10 | Orthopedic Progress Note ---
Date of Service May 18, 2024 Assessment & Plan (1) Status post total right knee replacement: Has some knee pain but reasonably controlled. dvt prophylaxis: teds, scd's, aspirin PT/OT wbat labs pending d/c planning: home with home health after therapy will discuss with Dr Ricki Tom . 64 year old patient POD 1 from right tka. Slept well last night. Having some knee pain but controlled. No other complaints. Review of Systems All systems reviewed & are unremarkable except as noted in HPI & below. Physical Exam .alert and oriented. NAD VSS labs pending Right leg: dressing clean, dry, intact. Difficulty performing straight leg raise. Able to dorsiflex, plantarflex, NVI Results & Data Results & Data Laboratory Results . Diagnostic Findings . PG Care Time/CCT Total # of Minutes Spent Total Time Spent with Patient: Total time spent is greater than 50% in coordination of care (as documented) at patient's floor/unit and/or counseling patient: Coding Level of Care Code 43474 Post Operative Follow-Up Diagnoses Status post total right knee replacement Z96.651
[2024-05-18 07:14] VITALS: BP 154/83; PULSE 57; RESP 18; TEMP 98.2; O2SAT 95
[2024-05-18 07:47] LABS: Hematocrit (blood only) 33.9 % (37.0-47.0); Hemoglobin 11.6 g/dl (12.0-16.0); Mean Corpuscular Hemoglobin 28.8 pg (25.0-34.0); Mean Corpuscular Hgb Conc 34.2 g/dL (32.0-36.0); Mean Corpuscular Volume 84.1 fL (80.0-100.0); Mean Platelet Volume 10.9 fL (9.4-12.4); Platelet Count 349 K/uL (130-400); RDW Coefficient of Variation 13.5 % (11.5-14.5); RDW Standard Deviation 41.7 fL (36.4-46.3); Red Blood Count 4.03 M/uL (4.20-5.40); White Blood Count 18.19 K/ul (4.8-10.8)
[2024-05-18 08:10] LABS: BUN Creatinine Ratio 17.7 (10-20); Calcium 8.8 mg/dl (8.6-10.3); Creatinine Clr Calc Pharmacy 113.4 ml/min; Potassium 4.1 mmol/L (3.5-5.1)
[2024-05-18] MEDS: HYDROmorphone INJ 0.5 MG/0.5 ML SYR IV PRN (08:21)
[2024-05-18] MEDS: CYANOCOBALAMIN (B-12) 500 MCG TABLET PO SCH (08:29)
[2024-05-18] MEDS: dexAMETHasone 10 MG in SYRINGE 0 ML IV SCH (08:29)
[2024-05-18] MEDS: LOSARTAN POTASSIUM 25 MG TAB PO SCH (08:29)
[2024-05-18] MEDS: MULTIVITAMIN TAB PO SCH (08:30)
[2024-05-18] MEDS ORDERED: ASPIRIN 81 MG ECTAB PO SCH (09:00)
--- NOTE | 2024-05-20 06:35 | Discharge Summary ---
Date of Service May 20, 2024 Admission HPI (Per Admitting) . The patient is a 64-year-old female referred by Dr. Anand for treatment of her knees. Fairly long history of bilateral knee pain discomfort described to gotten worse over time. The right knee bothers her more than the left. She been through extensive conservative treatment over the years including multiple injections. The last shot really did not help much at all. Left knee seems to be doing okay but the right knee really limits her lifestyle. She is got global pain for more she is on it the more it hurts. She is ready to have it fixed. Admission Exam (Per Admitting) . Physical examination reveals a pleasant middle-age female. Looks be in pretty good health. Examination of the right knee reveals the patient ambulates independently. She clearly favors the right knee. Slight bit of a limp is got varus alignment. Tender with medial joint line. Moderate soft tissue envelope. Range of motion about 5-1 20. No instability. No pain with hip motion. Principal Diagnosis Same as "Discharge Diagnosis" noted below under Discharge Instructions. Discharge Exam .alert and oriented. NAD VSS labs pending Right leg: dressing clean, dry, intact. Difficulty performing straight leg raise. Able to dorsiflex, plantarflex, NVI Discharge Data Procedures Performed Operation Date: 05/17/24 12:30 Actual Procedures p Right Total Knee Arthroplasty(Right) - Brian Robison MD Ordered Studies 05/17/24 05:00 US - OR guided needle placemen Routine Hospital Course (1) Status post total right knee replacement: This is a 64 year old patient admitted on 05/17/24 and underwent total knee arthroplasty. She tolerated the procedure well and there were no complications. Transferred to the PACU post op and later to the orthopedic floor for further care. She was given ancef for antibiotic prophylaxis. She was also given KENDALL stockings, SCDs, and aspirin for DVT prophylaxis. Hemoglobin, hematocrit, and vital signs were monitored during her hospital stay and remained stable. Did not require any blood transfusions. There were no complications during her hospital stay. By post op day #1 the patient was tolerating a regular diet, pain was reasonably controlled with oral pain medicine, and she was participating in physical therapy. On post op day #1 the patient was discharged home and set up with home health care. She was given printed discharge instructions including prescriptions for extra strength tylenol, aspirin, cefadroxil, zofran, oxy codone, and senokot. Continue physical therapy, weight bearing as tolerated. Continue KENDALL stockings. Follow up approximately 2 weeks post op or sooner if there are problems or concerns. Discharge Plan Discharge Items Patient Disposition: Home - Home Health Services Reason For Visit: RIGHT KNEE REPLACEMENT Discharge Diagnosis: Right Knee Replacement Activity: Per Instructions section Weightbearing: Full weightbearing Non-emergency contact: Surgeon Call non-emergency contact if: you have any medication questions Follow-up/Referrals: An Tan, [Primary Care Provider] - [facility] [Non-Staff] - Diet: Regular Addtl Attending Provider Instructions: ACTIVITY RECOMMENDATIONS: Diet: * You may resume previous diet. Physical Therapy: * You will go to physical therapy three times each week for four to six weeks after your surgery in order to regain your knee range of motion and to retrain your knee to work properly. * It is just as important to make sure you are getting your knee perfectly straight as it is to regain your knee bend. * Taking a pain pill an hour before therapy can help you have a more productive and comfortable therapy session. Home Exercise: * You were shown a series of exercises (heel props, heel slides, etc.) in the h ospital. Do these exercises three to four times each day including the exercises you were shown in physical therapy. Walking: * Get up and walk several times each day. For the first four weeks, try not to stand or walk for more than one hour at a time. If you do stand or walk for more than one hour, you will not hurt anything, but your knee and leg will likely swell. * As you feel comfortable, you may change from the walker or crutches to a cane and then to independent walking. MEDICATIONS: New Medicine: * You will likely be taking one or more of these medications: 1. Oxycodone - A quick and shorter-acting pain medication. Take one to two tablets every six hours to lessen your pain. 2. Aspirin - Thins your blood to lessen the chance of forming a blood clot. * The most common side effects of pain medicine and iron are nausea and constipation. If nausea or constipation is too much of a problem or if you have any questions about your new medicines or doses, call [facility] at . We will try to help you manage these issues. "VERY IMPORTANT TO READ AND REVIEW" Pain: * The immediate post-operative period after knee replacement surgery is often quite painful. * You are given a prescription for pain medicine. You should take it, as directed, when you need it, especially before physical therapy and before going to bed. Pain that interferes with sleep is very common and can last several months. * You will likely need pain medicine for the first four to six weeks. It will not stop all of the pain. The pain will lessen and as you feel better, you may change to milder pain medicine such as Tylenol. * The most common side effects of pain medicine are nausea and constipation, so don't take more than you need. SPECIAL CARE INSTRUCTIONS: TEDs/Elastic Stockings: * The white elastic stockings help limit swelling and prevent blood clots from forming in your legs. The more you wear them, the more they work. * Wear them for six weeks after knee replacement surgery and four weeks after partial knee replacement. Incision Site Care: * Remove dressing postoperative day 2 and then shower. Keep direct shower pressure off the incision site. * After showering, cover kimberli with dry gauze and change daily or more frequently if the dressing is getting saturated with drainage. * Use the KENDALL stockings to hold dressing in place. DO NOT apply tape on the skin. * May completely stop using bandage if wound is dry and no drainage * Kimberli are removed between 2 and 3 weeks post-op. If your follow-up appointment is made before 2 weeks, please have your appointment re- scheduled. It is too early to remove the kimberli. Prevention of Infection: * Take antibiotics one hour before any dental cleaning, dental work, urological procedure, gastrointestinal procedure or any invasive surgery in order to prevent your new joint from getting infected. * You may get the antibiotics from the doctor performing the procedure or you may call our office at [phone] before and we will call in a prescription to the pharmacy of your choice. Things to Watch For: * Drainage from the incision site that occurs more than one week after your surgery. * Severely increased knee/leg pain or swelling. * Increased redness at the incision site. * Fever above 102 degrees Fahrenheit. * Unusual chest pain or shortness of breath. * Unusual pain or burning with urination. Call [facility] at [phone] with any of the above problems or if you have any questions about your medicines or recovery. FOLLOW UP VISIT: Make an appointment to see your doctor for approximately two weeks after surgery for a progress check and staple removal by calling the office at [phone]. Pending Studies at Discharge: No Stand-Alone Forms: My [facility], Pain - Opioid Pain Management, Smoking Cessation Medications and DC Order Prescriptions: Continued oxycodone 5 mg tablet 5 - 10 mg PO Q6 PRN (Reason: pain) Qty: 40 0RF Rx Instructions: Take as needed for pain ondansetron 4 mg tablet,disintegrating 4 mg PO Q8 PRN (Reason: nausea) Qty: 20 1RF Rx Instructions: Take as needed for nausea sennosides [Senokot] 8.6 mg tablet 8.6 mg PO BID 14 Days Qty: 28 0RF Rx Instructions: Take two times a day to prevent/treat constipation acetaminophen [Tylenol Extra Strength] 500 mg tablet 1,000 mg PO TID 30 Days Qty: 180 0RF Rx Instructions: Take 3 times per day to lessen pain. aspirin [Walker Low Dose Aspirin] 81 mg tablet,delayed release (DR/EC) 81 mg PO BID 45 Days Qty: 90 0RF Rx Instructions: Take to prevent blood clots. cefadroxil 500 mg capsule 500 mg PO BID 7 Days Qty: 14 0RF Rx Instructions: Take 1 cap twice a day to prevent infection aspirin 81 mg Tablet,Delayed Release (Dr/Ec) 81 mg PO QAM Rx Instructions: take with food estradiol 0.01 % (0.1 mg/gram) cream 1 applic VAGINAL .EVERY OTHER NIGHT Rx Instructions: pea sized application losartan 25 mg Tablet 25 mg PO QAM Medical Marijuana 1 inh inhalation HS PRN (Reason: Pain) multivitamin Tablet 1 tab PO DAILY PRN (Reason: prn) ergocalciferol (vitamin D2) [Vitamin D2] 1,250 mcg (50,000 unit) Capsule 1,250 mcg PO WK levothyroxine [Synthroid] 112 mcg tablet 112 mcg PO QAM cyanocobalamin (vitamin B-12) Tablet,Chewable 1 tab PO QAM Medical Marijuana 1 applic topical DAILY PRN (Reason: prn) Patient Comments: applies to right knee Mometasone Azelastine Saline 1 spray intranasal HS Patient Comments: compounded Rx nasal rinse cyanocobalamin (vitamin B-12) 1,000 mcg/mL Solution 1,000 mcg IM MONTHLY Discontinued ketorolac 10 mg tablet 10 mg PO Q6 5 Days Qty: 20 0RF Rx Instructions: Take 4 times per day with food for 5 days to lessen pain and swelling. Krames/Other Patient Handouts: DVT Post Op Prevention, Tips After Knee Surgery, Knee Replacement Total Dc Admission Data Admit Date/Time: 05/17/24 14:27 Attending Provider: Brian Robison Admit Provider: Brian Robison Primary Care Provider: An Tan Other Providers: [facility] Other Interventions: Discharge Summary Assessment (RN) Last Done: 05/18/24 10:05
[2024-05-31] MEDS ORDERED: CYANOCOBALAMIN 1000 MCG/ML VIAL IM ONE (09:00)
== END 2024-05-18 11:13 | disposition home health service (06) ==
LOC: ASU 10:29 → 3E 10:29
DX: Z91.010 Allergy to peanuts; I10 Essential (primary) hypertension; F32.A Depression, unspecified; Z79.82 Long term (current) use of aspirin; Z79.899 Other long term (current) drug therapy; J45.909 Unspecified asthma, uncomplicated; Z88.8 Allergy status to other drugs, medicaments and biological substances; K21.9 Gastro-esophageal reflux disease without esophagitis; M17.0 Bilateral primary osteoarthritis of knee; F41.9 Anxiety disorder, unspecified; G47.33 Obstructive sleep apnea (adult) (pediatric); Z79.890 Hormone replacement therapy; Z86.73 Personal history of transient ischemic attack (TIA), and cerebral infarction without residual deficits; E03.9 Hypothyroidism, unspecified